=== PATIENT | male | born 1950 | race Caucasian/White ===

== ENCOUNTER 2019-12-15 09:59 | Outpatient (CLI) | payer MEDICARE, SELFPAY ==
--- NOTE | ~2019-12-15 | XR_ITS ---
XR shoulder RT min 2V, XR shoulder LT min 2V 12/15/2019 10:31 (accession [id number]), 12/15/2019 10:32 (accession [id number]) Indication: Shoulder pain. No acute injury. Procedure: 4 views each shoulder Comparison: No prior studies for comparison. Findings: Normal anatomic alignment. No fracture, subluxation or dislocation. There is apical pleural thickening/scarring. Impression: 1: No significant bone or joint abnormality. Reviewed, dictated and finalized at location B. Impression: 1: No significant bone or joint abnormality. Impression: 1: No significant bone or joint abnormality.
== END 2019-12-15 10:00 | disposition home or self-care (01) ==
PROVIDERS: PCP Family Medicine; Visit Provider Family Medicine
DX: M25.511 Pain in right shoulder (principal); M25.512 Pain in left shoulder
CPT/HCPCS: 73030

== ENCOUNTER 2020-04-13 09:43 | Emergency (ER) | payer MEDICARE, SELFPAY ==
[2020-04-13 10:03] VITALS: BP 143/89; PULSE 128; RESP 20; TEMP 36.2; O2SAT 98
--- NOTE | 2020-04-13 10:35 | ED.SKABFB ---
HPI - Skin/Abscess/Foreign Bdy General Chief complaint: Skin/Abscess/Foreign Body Stated complaint: rash all over Time Seen by Provider: 04/13/20 10:26 Source: patient and RN notes reviewed Mode of arrival: ambulatory Limitations: no limitations History of Present Illness HPI narrative: Patient presents today with a pruritic rash to the lower abdomen, bilateral arms and groin x2 weeks. States it continues to worsen since onset. Reports it started in the belt area. Denies drainage. He has tried some hydrocortisone and Aveeno lotion, which provide some mild relief for short-term. He has also been intermittently taking some Benadryl without relief. He denies changes in any household products, foods, medications, plant or animal exposures. MD complaint: rash Related Data Allergies Allergy/AdvReac Type Severity Reaction Status Date / Time bacitracin Allergy Unknown Blister Verified 04/13/20 09:54 [From Neosporin ([id number])] neomycin Allergy Unknown Blister Verified 04/13/20 09:54 [From Neosporin ([id number])] polymyxin B [Polysporin] Allergy Unknown Blister Verified 04/13/20 09:54 Review of Systems Review of Systems: Narrative: CONSTITUTIONAL: Denies body aches, fever, chills, or sweats. EYES: Denies visual changes, redness, or discharge. ENT: Denies rhinorrhea, congestion, sore throat, or otalgia. CARDIOVASCULAR: Denies chest pain, palpitations, or edema. RESPIRATORY: Denies cough or dyspnea. GASTROINTESTINAL: Denies abdominal pain, nausea, vomiting, or diarrhea. GENITOURINARY: Denies dysuria or hematuria. SKIN:+ Pruritic rash. MUSCULOSKELETAL: Denies back pain, joint pain, or myalgia. NEUROLOGIC: Denies headache, numbness, tingling, or weakness. PSYCH: Denies depression or anxiety. [facility] Past Medical History Medical History (Updated 04/13/20 @ 10:40 by Anisha Olmos, [facility], ) COPD (chronic obstructive pulmonary disease) History of lung cancer Osteoarthritis of shoulders, bilateral Rotator cuff tendonitis Surgical History Surgical History (Updated 03/08/20 @ 16:50 by Afua Orona) S/P removal of lung Family History Family History Other Acute myocardial infarction Family history of cardiovascular disease Social History Social History (Updated 03/08/20 @ 16:52 by Afua Orona) Smoking status: Former smoker Smoking end date: 02/26/17 Alcohol intake: current Drinks per week: 12 Comments At time of signature, I have reviewed and agree with nursing past medical, surgical, social and family history unless otherwise noted. Please see nursing chart for further information. There is no relevant family history pertinent to the presenting complaint Exam Narrative: Exam Narrative: GENERAL: Well-appearing, well-nourished, and in no acute distress. HEAD: Normocephalic, atraumatic. EYES: EOMI. No redness or drainage. Conjunctivae normal. ENT: Mucous membranes pink and moist. NECK: Normal AROM. CHEST: No respiratory distress. EXTREMITIES: Normal range of motion. No edema. SKIN: Warm, dry. Capillary refill normal. Normal skin turgor. Erythematous papular rash that has coalesced in the bilateral lower abdomen. This area is very warm to touch with slight induration. Scattered erythematous papular rash to the bilateral lower arms, groin, and legs as well as the back. No vesicles or drainage noted. NEURO: No focal deficits. Alert and oriented x3. Gait steady. PSYCH: Normal affect. No signs of depression or anxiety. Course Vital Signs Vital signs: Vital Signs Temperature 97.1 F L 04/13/20 10:03 Pulse Rate 128 H 04/13/20 10:03 Respiratory Rate 20 04/13/20 10:03 Blood Pressure 143/89 H 04/13/20 10:03 Pulse Oximetry 98 04/13/20 10:03 Temperature 97.1 F L 04/13/20 10:03 Pulse Rate 128 H 04/13/20 10:03 Respiratory Rate 20 04/13/20 10:03 Blood Pressure 143/89 H 04/13/20 10:
== END 2020-04-13 11:00 | disposition home or self-care (01) ==
PROVIDERS: Emergency Provider Nurse Practitioner
DX: L25.9 Unspecified contact dermatitis, unspecified cause (principal); L03.311 Cellulitis of abdominal wall; Z87.891 Personal history of nicotine dependence; J44.9 Chronic obstructive pulmonary disease, unspecified; M19.012 Primary osteoarthritis, left shoulder; M19.011 Primary osteoarthritis, right shoulder; Z85.118 Personal history of other malignant neoplasm of bronchus and lung
CPT/HCPCS: 96372; 99213; G0463; J1100

== ENCOUNTER 2020-05-25 10:03 | Outpatient (CLI) | payer MEDICARE, SELFPAY ==
--- NOTE | 2020-05-25 18:25 | P.PCNPFT_ITS ---
PFT Interpretation This is a pulmonary function test with pre and post-bronchodilator spirometry, plethysmography and diffusing capacity. The test was performed and results interpreted in accordance with the 2019 and 2005 ATS/ERS Task Force guidelines respectively using the Global Lung Function Initiative-2012 reference equations. Patient demonstrated good effort and c ooperation. Reproducibility criteria were met. The quality of the pre bronchodilator spirometry maneuver was Grade A and post bronchodilator spirometry maneuver was Grade A. Findings: Spirometry: there is decreased maximal expiratory airflow at all lung volumes with concave expiratory flow tracing. The contour of the inspiratory flow tracing is normal. The pre bronchodilator F VC is 3.79 L, 120% predicted. The pre bronchodilator FEV1 is 2.23 L, 92% predicted. The FEV1: FVC ratio is 59%. The post bronchodilator FVC is 3.81 L, representing no change. The post bronchodilator FEV1 is 2.28 L, representing a 2% increase. Plethysmography: The total lung capacity is 4.56 L, 83% predicted. The functional residual capacity is 2.22 L, 70% predicted. The residual volume is 0.77 L, 33% predicted. Diffusing capacity: The absolute diffusion capacity is 12.5, 58% predicted. The diffusing capacity corrected for alveolar volume is 3.08, 74% predicted. Impression: There is a mild obstructive abnormality with a normal FEV1 and without significant improvement after inhaling a single dose of albuterol. There is an isolated decrease in the residual volume with a normal total lung ca pacity. This is abnormal but nonspecific lung volume pattern. The absolute diffusing capacity is moderately decreased and normalizes when corrected for alveolar volume. There are no prior studies for comparison
== END 2020-05-25 10:04 | disposition home or self-care (01) ==
PROVIDERS: PCP Family Medicine; Visit Provider Physician Assistant Medical
DX: J44.9 Chronic obstructive pulmonary disease, unspecified (principal)
CPT/HCPCS: 94060; 94726; 94729

== ENCOUNTER 2020-06-09 13:08 | Emergency (ER) | payer MEDICARE, SELFPAY ==
--- NOTE | ~2020-06-09 | XR_ITS ---
EXAMINATION: XR chest 2V EXAM DATE: 06/09/2020 14:01 INDICATION: Cough for one week. History right upper lobectomy, lung cancer. COPD. TECHNIQUE: Frontal and lateral projections of the chest obtained and reviewed. There is no prior kimmie dy for comparison. FINDINGS: Some right-sided volume loss, reportedly patient has had partial pneumonectomy. No conflue nt consolidation, pneumothorax or pleural effusion suspected. Cardiomediastinal silhouette is normal. Mild thoracic scoliosis. IMPRESSION: No acute cardiopulmonary findings. Reviewed, dictated and finalized at location A.
--- NOTE | 2020-06-09 13:31 | ED.URI ---
HPI - URI/Sore Throat General Chief Complaint: Upper Respiratory Infection Stated Complaint: upper respiratory infection Time Seen by Provider: 06/09/20 13:31 Source: patient and RN notes reviewed History of Present Illness HPI Narrative: Patient is a 6-year-old male who presents the urgent care with complaints of cough for the last 4 days. Patient states that he had a bout of chills and some shortness of breath last night. Patient states that he has taken 2 doses of leftover doxycycline and feels great today . Patient currently denies of any shortness of breath or chest pain. Patient states that he is concerned only because he has a history of right lung cancer with a right lobectomy as well as COPD. Patient states that prior to his symptoms he did do some spray painting in an enclosed area. Patient currently denies of any known fevers, nausea, vomiting. No other acute complaints. No acute distress noted. Patient aware of the plan of care. Some parts of this dictation were generated by voice recognition software and may contain typographical and/or grammatical inaccuracies. Related Data Allergies Allergy/AdvReac Type Severity Reaction Status Date / Time bacitracin Allergy Unknown Blister Verified 06/09/20 13:29 [From Neosporin ([id number])] neomycin Allergy Unknown Blister Verified 06/09/20 13:29 [From Neosporin ([id number])] polymyxin B [Polysporin] Allergy Unknown Blister Verified 06/09/20 13:29 Review of Systems Review of Systems: Narrative: CONSTITUTIONAL: Denies fever. 1 bout of chills EYES: Denies visual changes, redness, or discharge. ENT: Denies rhinorrhea, congestion, sore throat, or otalgia. CARDIOVASCULAR: Denies chest pain, palpitations, or edema. RESPIRATORY: Reports a mild nonproductive cough with no current dyspnea GASTROINTESTINAL: Denies abdominal pain, nausea, vomiting, or diarrhea. GENITOURINARY: Denies dysuria or hematuria. SKIN: Denies rash or itching. MUSCULOSKELETAL: Denies back pain, joint pain, or myalgia. NEUROLOGIC: Denies headache, numbness, or weakness. All other systems reviewed are negative, except as documented in HPI. [facility] Past Medical History Medical History COPD (chronic obstructive pulmonary disease) History of lung cancer Osteoarthritis of shoulders, bilateral Rotator cuff tendonitis Surgical History Surgical History S/P removal of lung Family History Family History Other Acute myocardial infarction Family history of cardiovascular disease Social History Social History (Updated 04/19/20 @ 11:44 by Ary Campoverde CMA) Second hand tobacco smoke exposure: No Smoking end date: 02/26/17 Alcohol intake: current Drinks per week: 12 Substance use: never Substance use type: does not use Gender identity (if verbalized by the patient): Male Spiritual care concerns: No Agree to blood products: Yes Comments At the time of my signature, I reviewed and agree with the nursing past medical, surgical, social, and family history. There is no relevant family history pertinent to the patient complaint. Exam Narrative: Exam Narrative: GENERAL: This is a well-nourished, well-developed patient, in no apparent distress. HEAD: normocephalic, atraumatic. EYES: PERRL. Sclera clear/white. Vision is grossly intact. EARS: External ears normal, auditory canals clear and without drainage, TMs normal without perforation. Hearing grossly intact. NOSE: External nose normal with no obvious nasal discharge, nares without redness, no rhinorrhea. THROAT: Mucous membranes moist, posterior pharynx clear. NECK: Neck supple, non-tender without lymphadenopathy, masses or thyromegaly. CARDIOVASCULAR: Regular rate and rhythm without murmurs, gallops, or rubs. RESPIRATORY: Mild right expiratory wheezes, otherwi
[2020-06-09 13:35] VITALS: BP 108/66; PULSE 100; RESP 20; TEMP 36.7; O2SAT 96
== END 2020-06-09 14:10 | disposition home or self-care (01) ==
PROVIDERS: Emergency Provider Nurse Practitioner Family; PCP Family Medicine
DX: R05 Cough (principal); J44.9 Chronic obstructive pulmonary disease, unspecified; M19.012 Primary osteoarthritis, left shoulder; M19.011 Primary osteoarthritis, right shoulder; Z85.118 Personal history of other malignant neoplasm of bronchus and lung
CPT/HCPCS: 71046; 99213; G0463

== ENCOUNTER 2020-07-28 10:24 | Emergency (ER) | payer MEDICARE, SELFPAY ==
--- NOTE | 2020-07-28 10:29 | ED.SKABFB ---
HPI - Skin/Abscess/Foreign Bdy General Chief complaint: Skin/Abscess/Foreign Body Stated complaint: Rash all over body Time Seen by Provider: 07/28/20 10:29 Source: patient and RN notes reviewed History of Present Illness HPI narrative: Patient is a 69-year-old male who presents the urgent care with complaints of a rash all over . Patient states that he went on vacation to [place] approximately 2 weeks ago and noticed the rash on the thighs initially. Patient states that he has been using an old prescription of triamcinolone to the affected areas without much improvement. Patient states that it has now moved to his mid back, around the waist, on the chest. Patient denies of any new prescriptions, creams, lotions or detergents. States that no one else in the home has the rash. States that he was having to cross through the [place] to get to the [place] and believes he may have came in contact with something at that time. No other acute complaints. No acute distress noted. Patient aware of the plan of care. Some parts of this dictation were generated by voice recognition software and may contain typographical and/or grammatical inaccuracies. Related Data Allergies Allergy/AdvReac Type Severity Reaction Status Date / Time bacitracin Allergy Unknown Blister Verified 07/28/20 10:29 [From Neosporin ([id number])] neomycin Allergy Unknown Blister Verified 07/28/20 10:29 [From Neosporin ([id number])] polymyxin B [Polysporin] Allergy Unknown Blister Verified 07/28/20 10:29 Review of Systems Review of Systems: Narrative: CONSTITUTIONAL: Denies fever, chills, or sweats. EYES: Denies visual changes, redness, or discharge. ENT: Denies rhinorrhea, congestion, sore throat, or otalgia. CARDIOVASCULAR: Denies chest pain, palpitations, or edema. RESPIRATORY: Denies cough or dyspnea. GASTROINTESTINAL: Denies abdominal pain, nausea, vomiting, or diarrhea. GENITOURINARY: Denies dysuria or hematuria. SKIN: Reports of itchy rash to bilateral thighs, around the waist, chest and mid back MUSCULOSKELETAL: Denies back pain, joint pain, or myalgia. NEUROLOGIC: Denies headache, numbness, or weakness. All other systems reviewed are negative, except as documented in HPI. [facility] Past Medical History Medical History (Updated 07/28/20 @ 10:46 by SUMI García) Arthritis of right shoulder region COPD (chronic obstructive pulmonary disease) History of lung cancer Osteoarthritis of shoulders, bilateral Rotator cuff tendonitis Surgical History Surgical History S/P removal of lung Family History Family History Other Acute myocardial infarction Family history of cardiovascular disease Social History Social History Second hand tobacco smoke exposure: No Smoking end date: 02/26/17 Alcohol intake: current Drinks per week: 12 Substance use: never Substance use type: does not use Gender identity (if verbalized by the patient): Male Spiritual care concerns: No Agree to blood products: Yes Comments At the time of my signature, I reviewed and agree with the nursing past medical, surgical, social, and family history. There is no relevant family history pertinent to the patient complaint. Exam Narrative: Exam Narrative: GENERAL: This is a well-nourished, well-developed patient, in no apparent distress. HEAD: normocephalic, atraumatic. EYES: PERRL. Sclera clear/white. Vision is grossly intact. EARS: External ears normal NOSE: External nose normal with no obvious nasal discharge, nares without redness, no rhinorrhea. THROAT: Mucous membranes moist NECK: Neck supple CARDIOVASCULAR: Regular rate and rhythm without murmurs, gallops, or rubs. RESPIRATORY: Clear to auscultation. Breath sounds equal bilaterally. No wheezes, rales, or rhonchi. GASTR
[2020-07-28 10:33] VITALS: BP 137/90; PULSE 99; RESP 16; TEMP 36.1; O2SAT 99
== END 2020-07-28 10:50 | disposition home or self-care (01) ==
PROVIDERS: Emergency Provider Nurse Practitioner Family
DX: L23.7 Allergic contact dermatitis due to plants, except food (principal); J44.9 Chronic obstructive pulmonary disease, unspecified; Z85.118 Personal history of other malignant neoplasm of bronchus and lung; M19.012 Primary osteoarthritis, left shoulder; M19.011 Primary osteoarthritis, right shoulder
CPT/HCPCS: 99213; G0463

== ENCOUNTER 2023-06-01 14:37 | Outpatient (CLI) | payer MEDICARE, OTHER, SELFPAY ==
--- NOTE | ~2023-06-01 | US_ITS ---
EXAMINATION: US venous doppler LE RT DATE: 06/01/2023 15:35 INDICATION: Right lower limb pain TECHNIQUE: Grayscale ultrasound images without and with compression and Doppler ultrasound images of the right lower extremity veins were obtained. COMPARISON: None. FINDINGS: The visualized portions of right common femoral vein, profunda (deep) femoral vein, femoral vein, pop liteal vein, peroneal trunk, posterior tibial veins, peroneal veins, gastrocnemius vein and greater s aphenous vein outflow are patent. Noncompressible occlusive thrombus in the right lesser saphenous ve in which is deep to the region of pain. IMPRESSION: 1. 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 No deep venous thr ombosis in the right lower limb. Reviewed, dictated and finalized at location A. IMPRESSION: 1. Noncompressible superficial venous necrosis in the right lesser saphenous ve in. No deep venous thrombosis in the right lower limb.
== END 2023-06-01 14:38 | disposition home or self-care (01) ==
PROVIDERS: PCP Family Medicine; Visit Provider Family Medicine
DX: M79.604 Pain in right leg (principal); Z86.718 Personal history of other venous thrombosis and embolism
CPT/HCPCS: 93971

== ENCOUNTER 2023-12-04 10:28 | Outpatient (CLI) | payer MEDICARE, OTHER, SELFPAY ==
--- NOTE | ~2023-12-04 | XR_ITS ---
HISTORY: fall 3 days ago shoulder pain and bilat anterior rib pain COMPARISON: None TECHNIQUE: 2 views of the right forearm were performed FINDINGS: No acute or subacute fracture, erosion, lytic or sclerotic lesion. Joint spaces are preserved and alignment is normal. Soft tissues are unremarkable without foreign body or significant calcification. Normal mineralization. IMPRESSION: Unremarkable radiographic evaluation of the right forearm, as detailed above. Reviewed, dictated and finalized at location A. IMPRESSION: Unremarkable radiographic evaluation of the right forearm, as dettiffanie lira above.
--- NOTE | ~2023-12-04 | XR_ITS ---
XR shoulder RT min 2V 12/04/2023 10:56 Indication: Right shoulder pain Procedure: 3 views right shoulder Comparison: 12/15/2019 Findings: There is a displaced comminuted right humeral neck fracture with displacement of the greate r tuberosity. Mild osteoarthritis of the acromioclavicular joint. Impression: 1: Acute comminuted, displaced right humeral neck fracture. Reviewed, dictated and finalized at location B. Impression: 1: Acute comminuted, displaced right humeral neck fracture.
--- NOTE | ~2023-12-04 | XR_ITS ---
HISTORY: fall 3 days ago shoulder pain and bilat anterior rib pain COMPARISON: None TECHNIQUE: 3 views of the right elbow were performed. FINDINGS: No acute or subacute fracture, erosion, lytic or sclerotic lesion. Joint spaces are preserved and alignment is unremarkable. No joint effusion is appreciated. Soft tissues are unremarkable without foreign body or significant calcification. Normal mineralization. IMPRESSION: No acute or subacute fracture, as detailed above. Reviewed, dictated and finalized at location A.
--- NOTE | ~2023-12-04 | XR_ITS ---
EXAMINATION: [id number] DATE: 12/04/2023 10:57 INDICATION: Fall. Shoulder pain. Rib pain. TECHNIQUE: A frontal view of the chest and 2 views on 3 radiographs of the right ribs and 2 views on 3 radiographs of the left ribs were obtained. COMPARISON: Chest 2 views 06/09/2020 FINDINGS: There is stable mild scarring at left lung apex. No pleural effusion or pneumothorax. The h eart size is normal. There are prominent pericardial fat pads. There is a comminuted fracture of prox imal right humerus. There are old healed right rib fractures. There are fractures of left sixth and s eventh ribs. IMPRESSION: 1. Fractures of left sixth and seventh ribs. 2. Comminuted fractured of proximal right humerus. Reviewed, dictated and finalized at location A.
--- NOTE | ~2023-12-04 | XR_ITS ---
HISTORY: fall 3 days ago shoulder pain and bilat anterior rib pain COMPARISON: None TECHNIQUE: 2 views of the right wrist were performed FINDINGS: No acute or subacute fracture, erosion, lytic or sclerotic lesion identified. Periarticular osteopenia is noted. Peripheral joint space narrowing as well as radiocarpal joint space narrowing and narrowing of the fi rst carpometacarpal joint space are present. Soft tissues are unremarkable without radiopaque foreign body or significant calcification. IMPRESSION: No acute or subacute fracture within the right wrist, as detailed above. Reviewed, dictated and finalized at location A.
== END 2023-12-04 10:29 | disposition home or self-care (01) ==
LOC: GOSHIMG 10:30
PROVIDERS: PCP Family Medicine; Visit Provider Family Medicine
DX: R07.81 Pleurodynia (principal); S42.291A Other displaced fracture of upper end of right humerus, initial encounter for closed fracture; S22.41XA Multiple fractures of ribs, right side, initial encounter for closed fracture; W19.XXXA Unspecified fall, initial encounter; M25.531 Pain in right wrist; M79.601 Pain in right arm; M25.521 Pain in right elbow
CPT/HCPCS: 71111; 73030; 73080; 73090; 73100

== ENCOUNTER 2023-12-12 12:31 | Outpatient (CLI) | payer MEDICARE, OTHER, SELFPAY ==
--- NOTE | ~2023-12-12 | US_ITS ---
BILATERAL LOWER EXTREMITY VENOUS ULTRASOUND Ordering provider: Mahnaz Woo NP-C History: . R60.0 - Localized edema . Comparison: None. FINDINGS: RIGHT LOWER EXTREMITY VEINS: --COMMON FEMORAL: Patent and free of thrombus. Normal compressibility, phasic flow and augmentation. --PROXIMAL SUPERFICIAL FEMORAL: Patent and free of thrombus. Normal compressibility, phasic flow and augmentation. --DISTAL SUPERFICIAL FEMORAL: Patent and free of thrombus. Normal compressibility, phasic flow and au gmentation. --POPLITEAL: Patent and free of thrombus. Normal compressibility, phasic flow and augmentation. --POSTERIOR TIBIAL: Patent and free of thrombus. Normal compressibility, phasic flow and augmentation . LEFT LOWER EXTREMITY VEINS: --COMMON FEMORAL: Patent and free of thrombus. Normal compressibility, phasic flow and augmentation. --PROXIMAL SUPERFICIAL FEMORAL: Patent and free of thrombus. Normal compressibility, phasic flow and augmentation. --DISTAL SUPERFICIAL FEMORAL: Patent and free of thrombus. Normal compressibility, phasic flow and au gmentation. --POPLITEAL: Patent and free of thrombus. Normal compressibility, phasic flow and augmentation. --POSTERIOR TIBIAL: Patent and free of thrombus. Normal compressibility, phasic flow and augmentation . IMPRESSION: Negative bilateral lower extremity venous US. No deep vein thrombosis. Reviewed, dictated and finalized at location A.
== END 2023-12-12 12:32 | disposition home or self-care (01) ==
PROVIDERS: PCP Nurse Practitioner; Visit Provider Nurse Practitioner
DX: R60.0 Localized edema (principal)
CPT/HCPCS: 93970

== ENCOUNTER 2024-09-20 09:43 | Emergency (ER) | payer MEDICARE, OTHER, SELFPAY ==
--- OUTSIDE RECORDS SUMMARY | 2024-09-20 09:45 | XMS_ITS | Continuity of Care Document ---
Author Organization [facility] Address [address] [place] [address] Phone Care Team Providers Care Power Shear Operator Name Role Phone Jerry BECERRA, Milly Unavailable Unavailable Allergies, Adverse Reactions, Alerts Substance Reaction Status Criticality neomycin Active No Information Medications Medication Instructions Dosage Effective Dates (start - stop) Status Comments latanoprost 0.005 % eye drops instill 1 drop by ophthalmic route every day in both eyes in the evening 1 drop - Active Prilosec OTC 20 mg tablet,delayed release take 1 tablet by oral route every day 1 tablet - Active Procedures Procedure Date SCODI, Retina No Charge Optomap Fundus Photos 025 Visual Field Examination(s) Office/outpatient Visit, Est SCODI, Posterior Segment No Charge Optomap Fundus Photos 024 Visual Field Examination(s) No Charge Refraction Eye Exam & Treatment Corneal Pachymetry SCODI, Posterior Segment No Charge Refraction No Charge Optomap Fundus Photos 022 Visual Field Examination(s) Office/outpatient Visit, Est No Charge Refraction Post-op Follow-up Visit Post-op Follow-up Visit Remove Cataract, Post Op Care 2 Remove Cataract, Insert Lens,Comanaged N IOLMaster-Professional No Charge Refraction Post-op Follow-up Visit Remove Cataract, Post Op Care 2 Remove Cataract, Insert Lens,Comanaged A IOLMaster-Professional IOLMaster-Technical SCODI, Retina No Charge Refraction No Charge Orbscan No Charge Optomap Fundus Photos 022 Office/outpatient Visit, New Advance Directives Directive Yes / No Effective Date File Name No Information Encounters Encounter Description Practice Location Reason(s) For Visit Diagnoses Date Provider Providers Copied on Encounter Office/outpa tient Visit, Est [facility], [facility] [employer] [address], [place], [place], [id number], tel:[phone] SEC Luis Eduardo BERMUDEZ Professional 6 month pressure check (chief complaint) Macular pseudohole of both eyesPresence of intraocular lensOther secondary cataract, bilateralPrim luz open-angle glaucoma, bilateral, mild stage 5 Jerry Atkins. [facility] [employer], [address], [place], [place], [address], [place]. tel:[phone] Justino Jessica MD.Referri Provider: Milly Edwards OD L, [facility] [employer] [address], [place], [address] . tel:[phone] [facility], [address], [place], [place], [id number], tel:[phone] SEC Luis Eduardo BERMUDEZ Professional Complete Exam (chief complaint) Macular pseudohole of both eyesPresence of intraocular lensOther secondary cataract, bilateralPrim luz open-angle glaucoma, bilateral, mild stageVitreous degeneration, right eye 4 Jerry Atkins. [facility] [employer], [address], [place], [place], [address], [place]. tel:[phone] Justino Jessica MD.Referri ng Provider: Justino Jessica MD P, [address] [place] [address], [address] . tel:[phone] Office/outpa tient Visit, Est [facility], [address] [place] [address] [address], [place], [place], [address], [place] tel:[phone] SEC Luis Eduardo BERMUDEZ Professional Glaucoma evaluation (chief complaint) Macular hole, bilateralGlau comatous optic atrophy, bilateralPres ence of intraocular lens Dec-2 2- 2 Eulalio Adler. [address] [facility] [address], [place], [place], [address], [place]. tel:[phone] Justino Jessica MD.Referri ng Provider: Justino Jessica MD P, [address] [place] [address], [address] . tel:[phone] [facility], [address] [place] [address] [address], [place], [place], [address], [place] tel:[phone] SEC Luis Eduardo BERMUDEZ Professional 1 mo CE PO (01/04/22) (chief complaint) Post op visit 2 Jerry OD Milly. [address] [place] [address], [address], [place], [place], [address], [place]. tel:[phone] Justino Jessica MD.Special ist: Austen Quezada OD, [employer] [address] [facility], [place], [address]. tel:[phone] erring Provider: Justino Jessica MD P, [address] [place] [address], [address] . tel:[phone] [facility], [address] [place] [address] [address], [place], [place], [address], [place] tel:[phone] SEC Luis Eduardo BERMUDEZ Professional 1 week s/p PCIOL (chief complaint) Post op visit 2 Jerry OD Milly. [address] [place], [place] [address]st [employer] [facility], [address], [place], [place], [address], [place]. tel:[phone] Justino Jessica MD.Referri ng Provider: Justino Jessica MD P, [address] [place] [address], [address] . tel:[phone] [facility], [address], [place], [place], [address], tel:[phone] SEC Luis Eduardo [place] Professional post op (chief complaint) Post op visit Nov- 0 2 Jerry OD Milly. [address] [place] [address] [employer] [facility], [address], [place], [place], [address], [place]. tel:[phone] Justino Jessica MD.Referri ng Provider: Justino Jessica MD P, [address] [place] [address], [address] . tel:[phone] [facility], [address] [place] [address] [address], [place], [place], [address], [place] tel:[phone] [facility] No Information 2 Eulalio Adler. [address] [facility], [facility] [address], [place], [place], [address], [place]. tel:[phone] Referring Provider: Justino Jessica MD P, [address] [place] [address], [address] . tel:[phone] [facility], [address] [place] [address] [address], [place], [place], [address], [place] tel:[phone] SEC [place] Professional No Information 2 Eulalio Adler. [address] [facility], [facility] [address], [place], [place], [address], [place]. tel:[phone] Referring Provider: Justino Jessica MD P, [address] [place] [address], [address] . tel:[phone] [facility], [address] [place] [address] [address], [place], [place], [address], [place] tel:[phone] SEC [place] Professional 2 week s/p PCIOL OD + 90 day (chief complaint) Post op visitEpiderma l inclusion cyst of left eyelidAge-rel ated nuclear cataract, left eye Sep-2 2 Eulalio Adler. [address] [employer], [address] [place], [address], [place]. tel:[phone] Justino Jessica MD.Referri ng Provider: Justino Jessica MD P, [address] [place] [address], [address] . tel:[phone] [facility], [address], [place], [place], [address], [place] tel:[phone] SEC Luis Eduardo [place] Professional post op (chief complaint) Post op visit Sep-0 2 Jerry OD Milly. [address] [place] [address] [address], [address], [place], [place], [address], [place]. tel:[phone] Justino Jessica MD.Referri ng Provider: Justino Jessica MD P, [address] [place] [address], [address] . tel:[phone] [facility], [address], [place], [place], [address], [place] tel:[phone] [facility] No Information 2 Eulalio Adler. [address] [employer], [address], [place], [place], [address], [place]. tel:[phone] Referring Provider: Justino Jessica MD P, [address] [place] [address], [address] . tel:[phone] [facility], [address], [place], [place], [address], [place] tel:[phone] SEC [place] Professional No Information 2 Eulalio Adler. [address] [employer], [address], [place], [place], [address], . tel:[phone] Referring Provider: Justino Jessica MD P, [address] [place] [address], [address] . tel:[phone] Office/outpa tient Visit, [facility], [address], [place], [place], [address], tel:[phone] SEC Luis Eduardo BERMUDEZ Professional Cataract evaluation (chief complaint) Age-related nuclear cataract, bilateralOcul ar hypertension of right eyeMacular hole, bilateral Sep- 2 Eulalio Adler. [address] [facility], [facility] [address], [place], [place], [address], . tel:[phone] Justino Jessica MD.Referri ng Provider: Justino Jessica MD P, [address] [place] [address], [address] . tel:[phone] [facility], [address], [place], [place], [address], [place] tel:[phone] SEC Renee Amor No Information 2 Eulalio Adler. [address], [facility] [address], [place], [place], [address], . tel:[phone] Specialist : Justino Jessica MD, [address] [place] [address], [address] . tel:[phone] Family History Family Member Type Diagnosis Age At Onset Mother Problem (finding) Thyroid Disease Problem Family history of Diabetes m gustavo Mother Problem (finding) Stroke Mother Problem (finding) Diabetes Type II Problem Family history of Macular de generation Payers Payer name Insurance type Covered libertarian ID Authoriza tion(s) [place] [id number] [facility] [id number] Social History Type Description Quantity Date Captured Comments Alcohol Use Details Caffeine Use Details Tobacco Use Status Ex-cigarette smoker 025 Smoking Status Former smoker Smoking Tobacco Use Details Cigarette: Age Started: 11, Age Stopped: 66, Years Used 54 Cigarette: 1 Packs per day, Pack Year: 55 Sex Male Chief Complaint And Reason For Visit From encounter dated '07/31/2024 13:00'. 6 month pressure check (chief complaint). Description: The 73 year old patient presents for evaluation of 6 month pressure check in the right eye and left eye. H/o POAG OU and PCIOL OU. Pt reports the left eye as getting more cloudy, started a few weeks ago. Latanoprost qhs OU, gets drops in most days. Pt had shoulder surgery and it's difficult to get drops in. Denies pain/pressure. Denies flashes/floaters. Reason For Referral Reason For Referral No Information Plan Of Treatment Date Type Action Status Goal Tobacco cessation counseling completed Goal Tobacco cessation counseling completed Goal Tobacco cessation counseling completed Goal Tobacco cessation counseling completed Goal Tobacco cessation counseling completed Goal Tobacco cessation counseling completed Appointment Herbert Rose BOOKED Appointment Herbert Rose BOOKED Patient Education Learning About YAG Lase r Capsulotomy completed Patient Education Learning About YAG Lase r Capsulotomy completed Patient Education Cataract Surgery: Befor e Your Surgery completed History Of Present Illness Encounter Date Complaint History Of Prese nt Illness 6 month pressure check The 73 ye ar old patient presents for evaluation of 6 month pressure check in the right eye and left eye. H/o POAG OU and PCIOL OU. Pt reports the left eye as getting more cloudy, started a few weeks ago. Latanoprost qhs OU, gets drops in most days. Pt had shoulder surgery and it's difficult to get drops in. Denies pain/pressure. Denies flashes/floaters. Complete Exam The 73 year old patient presents for evaluation of Complete Exam in the right eye and left eye. Pt hx of OHTN, PCIOL OU. Pt states after Mac Hole repair OU(2021 OD and 2022 OS) with Dr Jessica he was put on Latanoprost qHS OU and has been using it ever since but has not followed up with any [facility] doctor since Dr Jessica retired. Pt states he feels vision is doing ok, but maybe a bit of decrease. Pt states driving at night is becoming more of a challenge x1-2 months. Glaucoma evaluation The 71 year old patient presents for a glaucoma evaluation ou. Patient recently had CE ou. Patient doesn't use any drops. Patient states ou is doing ok. 1 mo CE PO (01/04/22) The 71 year old patient presents for evaluation of 1 mo CE PO (01/04/22) in the left eye. Pt reports has finished his CE PO gtts and is currently using Latanoprost QHS OU. Pt reports OS is doing good and he is seeing better than he has in 30 yrs. 1 week s/p PCIOL The 71 year old patient presents for evaluation of 1 week s/p PCIOL in the left eye. Patient states VA seems good. Patient using p/o gtts as directed. post op The 71 year old patient presents for a 1 day post op CE OS. Patient is using Pred, Vigamox and Ketorolac qid OS. Patient denies any pain or discomfort. Patient states vision OS seems pretty good. 2 week s/p PCIOL OD + 90 day The 71 year old patient presents for evaluation of 2 week s/p PCIOL OD + 90 day in the left eye. Patient states VA is great at a distance with the right eye. Patient using p/o gtts as directed. c/o with the left eye is trouble driving at night due to glare. Patient has difficulty seeing in bright sunlight with the left eye. Patient states he has difficulty seeing road signs at a distance with the left eye and notices the difference between both eyes trying to work together. PATIENT IS NOT USING GLAUCOM GTTS.. (Rosalina qd OU and Brim BID OS is what JMN visit noted to use. post op The 71 year old patient presents for a 1 day post op CE OD. Patient is using Pred, Vigamox and Ketorolac qid OD. Patient denies any pain or discomfort. Patient states his vision OD seems pretty good. Cataract evaluation The 70 year old patient presents for evaluation of Cataract evaluation in the right eye and left eye. Pt. was referred by Dr. Jessica for Cataract evaluation. Pt. has noticed the past 6-8 months decrease in vision at distance. Pt. is having trouble seeing the tv menu even with glasses on. Pt. also struggling to see to drive at night due to glare from headlights. Pt. had Mac. hole OD s/p surgery, and then had Mac. surgery OS 2 weeks ago. Pt. is currently using Latanoprost OU qhs, and Tobradex OS qid. Pt. states his air bubble resolved as of yesterday. Functional Status Date Functional Assessmen t No Information Instructions Date Instruction Additional Infor saray Impression/Plan Impression/Plan Impression/Plan Impression/Plan Impression/Plan Impression/Plan Impression/Plan Impression/Plan Impression/Plan Assessments Type Assessment Date assessment Macular pseudohole of both eyes assessment Presence of intraocular lens Jul assessment Other secondary cataract, bilate ral assessment Primary open-angle glaucoma, danilo ateral, mild stage Patient Care Teams Name Effective Dates (start - stop) Status Members No Information
--- OUTSIDE RECORDS SUMMARY | 2024-09-20 09:45 | XMS_ITS | Encounter Summary ---
Author Organization [facility] Healthcare Address [address] [place] [address] Care Team Providers Care Recreation Superintendent Name Role Phone Geovani Hernandez MD Unavailable [phone] Chase Dowell MD Unavailable Daniel Pérez MD Unavailable Megan Shelley DO Primary Care Provider [phone] Reason for Visit * Reason Comments PT Treatment * Consultation (Routine) - Authorized Specialty Diagnoses / Procedures Referred By Danny t Referred To Contact Physical Therapy Diagnoses Right shoulder pain, unspecified chronicity Failed total joint replacement, subsequent encounter Infection of prosthetic joint, subsequent encounter Bill Reyna MD [address] [facility] [place] [address] Phone: tel: fax: [address] [address] Referral ID Status Reason Start Date Expiration Date Visits Requested Visits Authorized [id number] Authorized Specialty Services Required 05/19/2024 06/18/2025 [age] Encounter Details Date Type Department Care Team (Late st Contact Info) Description 09/19/2024 8:30 AM CDT Therapy [facility] [place] [address] Allyssa Omer, PT Right shoulder pain, unspecified chronicity (Primary Dx) Social History Tobacco Use Types Packs/Day Years Used Date Smoking Tobacco: Former Cigarettes 0.5 55 1 962 - 2017 Passive Smoke Exposure: Past Smokeless Tobacco: Never AUDIT-C Answer Date Recorded Q1: How often do you have a drink containing alc ohol? 2-3 times a week 04/30/2024 Q2: How many drinks containi ng alcohol do you have on a typical day when you are drinking? 1 or 2 04/30/2024 Q3: How often do you have si x or more drinks on one occasion? Never 04/30/2024 Personal Safety Answer Date Recorded Have you ever been in or are you currently in a harmful physical or emotional relationship or is someone making you feel afraid or unsafe? 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 Right shoulder pain, unspecified chronicity Subjective: Herbert has no changes or complaints today. He feels that he is able to do most activities. He has relatively no pain most of the time. Objective: DOS: 05/14/2024 (128 days s/p) Right Revision Reverse Total Shoulder Arthroplasty - Right Shoulder Removal Of Antibiotic Spacer ROM: PROM AROM R L R Shoulder Flexion 148 135 110 Shoulder Abduction 145 160 90 Shoulder ER at 45 50 - - Shoulder IR at 0 - - - Shoulder ER at 90 50 90 - Shoulder IR at 90 80 45 - Manual Muscle Testing: Left Right Shoulder flexion 5/5 5-/5 Shoulder abduction 5-/5 4+/5 Shoulder ER 5-/5 3-/5 Shoulder IR 5-/5 2/5 Treatment Provided: PROM flexion, abduction, ER Supine cane press 5 lb bar Supine shoulder flexion 5 lb bar Supine cane ER 5 lb bar Supine active punch/reach x20 3# Supine arm circles x 10ea CW/CCW 3# Supine R shoulder flexion x 15 3# S/L shoulder abduction x 15 3# S/L shoulder ER x8 2#, x8 3# - self tactile cue requires to avoid arm abduction Pulleys flexion and abduction x2'ea Rows blueTB - requires verbal and tactile cues the first few reps to perform with appropriate muscle recruitment IR at neutral green TB ER at 0 step out greenTB (trying to keep arm at neutral as walking out and avoiding going into IR) Wall slides flexion Wall slides side to side Finger ladder x 5 Active flexion x10 4# Active scaption x10 4# Bicep curls x 20 5# Gentle stretch behind back with green strap Weighted Red ball @ wall CW/CWW x10 each UBE 6 minutes forward/backward L3 HEP Includes: Access Code: [email or web address] URL: [email or web address] Date: 06/05/2024 Prepared by: Kimberly Washington Exercises - Seated Scapular Retraction - 2 x daily - 7 x weekly - 1 sets - 20 reps - Supine Shoulder Flexion Extension AAROM with Dowel - 2 x daily - 7 x weekly - 1 sets - 20 reps - Supine Shoulder Press with Dowel - 1 x daily - 7 x weekly - 2 sets - 10 reps - Standing Shoulder Abduction ROM with Dowel - 1 x daily - 7 x weekly - 2 sets - 10 reps - Seated Shoulder Flexion AAROM with Giana Behind - 1 x daily - 7 x weekly - 1- 2 sets - 20 reps Added 5/2: - Supine Shoulder Flexion Extension Full Range AROM - 1-2 x daily - 7 x weekly - 10-20 reps - Sidelying Shoulder Abduction Palm Forward - 1-2 x daily - 7 x weekly - 10-20 reps - Sidelying Shoulder External Rotation - 1-2 x daily - 7 x weekly - 10-20 reps Assessment: Herbert has completed 29 visits of PT intervention s/p R RTSA with antibiotic spacer and revision. He is progressing well at this time. He has achieved expected AROM and has likely achievedfull strength at this point. Intervention over the last several weeks has focused on strenghtening primarily. He has maximal therapy progress at this point. He has minimal pain and is functional. Goals: STG 1:: Pt to be IND with HEP excellent progress LTG 1:: Pt to improve active elevation to >130 degrees goal met LTG 2:: Pt to improve strength at leat 4+/5 some progress LTG 3:: Pt to report max pain <2/10 with daily activities excellent progress Plan: D/C PT at this time. Start Time: 827 End Time: 909 Allyssa Omer, PT, DPT PROTOCOL: Lifting restriction of 5 pounds until 12 weeks from surgery Advance AROM and PROM as tolerated Advance elevation as tolerated Initiate IR behind the back Scapular stabilizer strengthening Advance shoulder ER range of motion as tolerated (Light stretching only). May initiate subscapularis strengthening (resisted IR and extension) and rotator cuff strengtheningat 12 weeks from surgery Incorporate low level functional activities at 3 months from surgery (swimming, water aerobics, light tennis, jogging). No weight restrictions after 3 months from surgery Start higher level activities at 4 months from surgery (tennis, light weight training, and golf). Initiate functional progression to sports specific activities at 4 months from surgery. documented in this encounter Plan of Treatment Not on file documented as of this encounter Visit Diagnoses Diagnosis Right shoulder pain, unspecified chronicity- Primary documented in this encounter Care Teams Recreation Superintendent Relationship Specialty Start Date End Date Megan Shelley DO [facility] [address] [address] PCP - General Family Medicine 12/05/23 Geovani Hernandez MD Surgeon Cardiothoracic Surgery 08/13/17 Chase Dowell MD Consulting Physician Medical Oncology 08/13/17 Daniel Pérez MD [address] [facility] [address] [place] [address] Consulting Physician Radiation Oncology 08/14/17 documented as of this encounter
--- OUTSIDE RECORDS SUMMARY | 2024-09-20 09:45 | XMS_ITS | Clinical Summary ---
Author Organization [facility] Address [address] [place] [address] Care Team Providers Care Theatre Manager Name Role Phone Gregory Stevens MD Primary Care Provider [phone] Source Comments [facility],non-owned Affiliates and Associated Physician Practices is amultiple site organization consisting of ambulatory clinics and hospital sitesin [place], [place], [place] and [place]. This disclosure is being madepursuant to the Care Everywhere program and may not contain all information available regarding this patient. 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 Gender Identity Not on file Sexual Orientation Not on file Plan of Treatment Health Maintenance Due Date Last Done Comments COLOGUARD (AGES 45-75) - COL ON CA SCREENING 1950 COLON MONITORING 1950 COLONOSCOPY - COLON CA SCREENING 1949 CT COLONOGRAPHY - COLON CA SCREENING 1950 Colorectal Cancer Screening 1950 FIT - COLON CA SCREENING 1950 FLEX SIG - COLON CA SCREENING 1950 LIPID TESTING 1950 MEDICARE AWV 12 MONTHS 1950 HEPATITIS C SCREENING 09/24/1967 DTAP/TDAP/TD VACCINES (1 - Tdap) 1968 PNEUMOCOCCAL VACCINE 50+ (1 of 1 - PCV) 09/29/1999 ZOSTER VACCINE (1 of 2) 09/29/1999 COVID-19 VACCINE ( - 2023-2 5 season) 2023 DEPRESSION SCREENING 02/27/2024 Respiratory Syncytial Virus (RSV) Vaccine Pt: or over 60 yrs (1 - 1-dose 75+ series) 2024 INFLUENZA VACCINE (#1) 2024 HEPATITIS B VACCINE Aged Out No longe r eligible based on patient's age to complete this topic HIB VACCINE Aged Out No longer eligi ble based on patient's age to complete this topic HPV VACCINE Aged Out No longer eligi ble based on patient's age to complete this topic MENINGOCOCCAL (Group B) VACC INE SHARED DECISION-MAKING Aged Out No longer eligibl e based on patient's age to complete this topic MENINGOCOCCAL GROUPS A/C/Y/W VACCINE Aged Out No longer eligible b ased on patient's age to complete this topic Insurance MEDICARE Care Teams Theatre Manager Relationship Specialty Start Date End Date Gregory Stevens MD [address] [place] [id number] PCP - General 12/21/08
--- OUTSIDE RECORDS SUMMARY | 2024-09-20 09:45 | XMS_ITS | Encounter Summary ---
Author Organization [facility] Address [address] [place] [address] Phone Care Team Providers Care Physical Fitness Teacher Name Role Phone Gregory Stevens MD Primary Care Provider [phone] Geovani Hernandez MD Unavailable [phone] Chase Dowell MD Unavailable [phone] Daniel Pérez MD Unavailable [phone] Megan Shelley DO Primary Care Provider [phone] Encounter Details Date Type Department Care Team (Latest Contact Info) Description 01/04/2017 Orders Only [facility] CONVERSION Scanning, Provider Social History Tobacco Use Types Packs/Day Years Used Date Smoking Tobacco: Never Assessed Sex and Gender Information Value Date Recorded Sex Assigned at Not on file Legal Sex 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 Gender Identity Not on file Sexual Orientation Not on file documented as of this encounter Plan of Treatment Not on file documented as of this encounter Procedures Procedure Name Priority Date/Time Associated Diagnosis Comments VASCULAR LABORATORY REPORT 01/04/2017 10:15 PM ENTERPRISE ACCOUNT MANAGER documented in this encounter Results * VASCULAR LABORATORY REPORT (01/04/2017 10:15 PM ENTERPRISE ACCOUNT MANAGER) Anatomical Region Laterality Modality Ultrasound us Provider Scanning CV VASCULAR PROCEDURES Final R esult documented in this encounter Visit Diagnoses Not on filedocumented in this encounter Additional Health Concerns Infection Onset Date Last Indicated Resolved Time COVID: Suspected 02/20/2024 02/20/2024 02/20/2024 5:21 PM ENTERPRISE ACCOUNT MANAGER documented as of this encounter Care Teams Physical Fitness Teacher Relationship Specialty Start Date End Date Gregory Stevens MD [address] [place] [address] PCP - General 04/14/16 12/04/23 Megan Shelley DO [address] [place] [address] [address]ACQUES [address] [place] [address] [id number] PCP - General Family Medicine 12/05/23 Geovani Hernandez MD [address] [place] [address] Surgeon Cardiothoracic Surgery 08/13/17 Chase Dowell MD [address] [place] [address] Consulting Physician Medical Oncology 08/13/17 Daniel Pérez MD [address] [place] [id number] # LL [id number] [place] [address] Consulting Physician Radiation Oncology 08/14/17 documented as of this encounter
--- OUTSIDE RECORDS SUMMARY | 2024-09-20 09:45 | XMS_ITS | Clinical Summary ---
Author Organization [facility] Address [address] [address] Care Team Providers Care Monitoring Manager Name Role Phone Geovani Hernandez MD Unavailable [phone] Chase Dowell MD Unavailable Daniel Pérez MD Unavailable Megan Shelley DO Primary Care Provider [phone] Allergies Active Allergy Reactions Criticality Noted Date Comments Amoxicillin-Pot Clavulanate Rash Medium 05/03/19 25 Drug rash with eosinophilia Bacitracin Rash Medium 04/23/2024 Contact dermatitis Cefepime Rash Medium 02/14/2024 Chlorhexidine Rash Medium 04/06/2024 Delayed hypersensitivity. Recommend alternative skin prep. Clindamycin Itching Low 03/14/2024 Ethyl Zdlgdhly-Vn-Ahscmi Methacrylate Rash Medium 04/23/2024 Contact dermatitis. Recommend paper tape for bandages. Hydrocortisone-Emollient No.45 Rash Medium 04/23/2024 ACD Latex Rash Medium 01/23/2024 Negative IgE testing for latex. Patient cannot recall initial allergy event or reaction. Never issues with condoms, latex dental dams. Neomycin Rash Medium Neosporin (Neomycin-Polymyx) Rash Medium 02/01/2016 Thimerosal Rash Medium 04/23/2024 Contact dermatitis Vancomycin Rash Medium 02/14/2024 Medications latanoprost (XALATAN) 0.005 % ophthalmic solution Administer 1 drop into both eyes nightly 4 Active traZODone (DESYREL) 50 mg tabletIndicatio ns:sleep Take 1 tablet (50 mg total) by mouth nightly as needed for sleep 5 Active cetirizine (ZyrTEC) 5 mg chewable tabletIndicatio ns:Seasonal Allergic Rhinitis Take 1 tablet (5 mg total) by mouth every morning Active omeprazole (PriLOSEC) 20 mg capsule Take 1 capsule (20 mg total) by mouth daily Active oxyCODONE (ROXICODONE) 5 mg immediate release tabletIndicatio ns:Pain Take 1 tablet (5 mg total) by mouth every 4 (four) hours as needed for pain 30 tablet 5 Active triamcinolone (KENALOG) 0.025 % ointment Apply topically 2 (two) times a day DO NOT APPLY TO RIGHT SHOULDER SURGICAL INCISION. 5 Active acetaminophen (TYLENOL) 500 mg tablet Take 2 tablets (1,000 mg total) by mouth every 6 (six) hours 60 tablet 1 5 Active aspirin 81 mg enteric coated tablet Take 1 tablet (81 mg total) by mouth 2 (two) times a day 28 tablet 5 Active celecoxib (CeleBREX) 100 mg capsule Take 1 capsule (100 mg total) by mouth 2 (two) times a day 28 capsule 5 Active docusate sodium (COLACE) 100 mg capsuleIndicati ons:constipatio n Take 1 capsule (100 mg total) by mouth 2 (two) times a day 30 capsule 1 5 Active Active Problems Problem Noted Date Diagnosed Date Arthritis of right shoulder region 05/14/2024 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 03/28/2024 Prosthetic joint infection, sequela 02/14/2024 Prosthetic shoulder infection, 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 02/05/2024 Prosthetic shoulder infection, subsequent encoun ter 01/22/2024 S/P reverse total shoulder arthroplasty, right 1 03/23/2023 Infection of prosthetic shoulder joint, sequela 01/22/2024 Right shoulder pain 12/19/2023 Closed fracture of right proximal humerus 2023 Basal cell carcinoma (BCC) o f skin of left eyelid including canthus 02/07/2022 Multiple pulmonary nodules d etermined by computed tomography of lung 02/07/2022 Renal cyst, right 08/12/2019 Encounter for smoking cessation counseling 08/11 Primary adenocarcinoma of upper lobe of right gali ng 08/08/2017 Cancer Staging:Clinical stage from 03/03/2016:Stage IIIA(cT1c, cN2, cM0) - Signed by Chase Dowell MD on 08/14/2017 Pathologic stage from 07/27/2016: ypT0, pN0, cM0 - Signed by Chase Dowell MD on 08/14/2017 Overview (02/12/2018): He had a right upper lobe resection and mediastinoscopy on July 27, 2016. This was a post induction lobectomy for T1 N2 stage IIIA lung cancer. As you recall, he had a complete pathologic response. 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 03/28/2016 Encounters Date Type Department Care Team Description 09/19/2024 8:30 AM CDT Therapy [facility] [place] [address] Allyssa Omer, PT Right shoulder pain, unspecified chronicity (Primary Dx) 09/17/2024 8:30 AM CDT Therapy [facility] [place] [address] Allyssa Omer, PT Right shoulder pain, unspecified chronicity (Primary Dx) 09/11/2024 1:00 PM CDT Therapy [facility] [place] [address] [address] Allyssa Omer, PT Right shoulder pain, unspecified chronicity (Primary Dx) 09/09/2024 8:30 AM CDT Therapy [facility] [place] [address] [address] Allyssa Omer, PT Right shoulder pain, unspecified chronicity (Primary Dx) 09/05/2024 8:30 AM CDT Therapy [facility] [place] [address] Kimberly Washington, PT Right shoulder pain, unspecified chronicity (Primary Dx); Infection of prosthetic joint, subsequent encounter; Failed total joint replacement, subsequent encounter; History of total shoulder replacement, right 09/01/2024 Results Follow-Up [facility] [address] [place] [address] Lety Dominguez MD CBC with auto differential 08/28/2024 8:30 AM CDT Therapy [facility] [place] [address] Kimberly Washington, PT Right shoulder pain, unspecified chronicity (Primary Dx); Infection of prosthetic joint, subsequent encounter; Failed total joint replacement, subsequent encounter 08/26/2024 1:00 PM CDT Therapy [facility] [place] [address] Allyssa Omer, PT Right shoulder pain, unspecified chronicity (Primary Dx) 08/22/2024 1:45 PM CDT Therapy [facility] [place] [address] Allyssa Omer, PT Right shoulder pain, unspecified chronicity (Primary Dx) 08/20/2024 9:15 AM CDT Therapy [facility] [place] [address] Allyssa Omer, PT Right shoulder pain, unspecified chronicity (Primary Dx) 08/14/2024 1:00 PM CDT Therapy [facility] [place] [address] Allyssa Omer, PT Right shoulder pain, unspecified chronicity (Primary Dx) 08/08/2024 8:30 AM CDT Therapy [facility] [place] [address] Kimberly Washington, PT Right shoulder pain, unspecified chronicity (Primary Dx); Infection of prosthetic joint, subsequent encounter; Failed total joint replacement, subsequent encounter 08/07/2024 10:48 AM CDT - 08/07/2024 11:59 PM CDT Hospital Encounter [facility] Radiology at [facility] [address] [place] [address] S/P orthopedic surgery, follow-up exam Discharge Disposition: Discharge to home or self care 08/07/2024 10:30 AM CDT Office Visit [facility] [address] [place] [address] Bill Reyna MD Right shoulder pain, unspecified chronicity (Primary Dx); S/P orthopedic surgery, follow-up exam; Failed total joint replacement, subsequent encounter; Infection of prosthetic joint, subsequent encounter 08/06/2024 8:30 AM CDT Therapy [facility] [place] [address] Kimberly Washington, PT Right shoulder pain, unspecified chronicity (Primary Dx); Infection of prosthetic joint, subsequent encounter; Failed total joint replacement, subsequent encounter 08/06/2024 Plan of Care Documentation [facility] [place] [address] 07/30/2024 8:30 AM CDT Therapy [facility] [place] [address] Kimberly Washington, PT Right shoulder pain, unspecified chronicity (Primary Dx); Infection of prosthetic joint, subsequent encounter; Failed total joint replacement, subsequent encounter 07/28/2024 2:45 PM CDT Therapy [facility] [place] [address] Allyssa Omer, PT Right shoulder pain, unspecified chronicity (Primary Dx) 07/25/2024 8:45 AM CDT Therapy [facility] [place] [address] [address] Allyssa Omer, PT Right shoulder pain, unspecified chronicity (Primary Dx) 07/23/2024 8:15 AM CDT Therapy [facility] [place] [address] Allyssa Omer, PT Right shoulder pain, unspecified chronicity (Primary Dx) 07/16/2024 7:45 AM CDT Therapy [facility] [place] [address] Kimberly Washington, PT Right shoulder pain, unspecified chronicity (Primary Dx); Infection of prosthetic joint, subsequent encounter; Failed total joint replacement, subsequent encounter; History of total shoulder replacement, right; Closed fracture of proximal end of right humerus with routine healing, unspecified fracture morphology, subsequent encounter 07/14/2024 2:00 PM T Therapy [facility] [place] [address] Kimberly Washington, PT Right shoulder pain, unspecified chronicity (Primary Dx); Infection of prosthetic joint, subsequent encounter; Failed total joint replacement, subsequent encounter; History of total shoulder replacement, right; Closed fracture of proximal end of right humerus with routine healing, unspecified fracture morphology, subsequent encounter 07/11/2024 11:30 AM T Therapy [facility] [place] [address] Kimberly Washington, PT Right shoulder pain, unspecified chronicity (Primary Dx); Infection of prosthetic joint, subsequent encounter; Failed total joint replacement, subsequent encounter 07/09/2024 1:00 PM CDT Therapy [facility] [place] [address] Kimberly Washington, PT Right shoulder pain, unspecified chronicity (Primary Dx); Infection of prosthetic joint, subsequent encounter; Failed total joint replacement, subsequent encounter; History of total shoulder replacement, right 07/03/2024 4:15 PM CDT Therapy [facility] [place] [address] Allyssa Omer, PT Right shoulder pain, unspecified chronicity (Primary Dx) 07/01/2024 1:30 PM CDT Therapy [facility] [place] [address] Allyssa Omer, PT Right shoulder pain, unspecified chronicity (Primary Dx) 06/27/2024 9:15 AM CDT Therapy [facility] [place] [address] Allyssa Omer, PT Right shoulder pain, unspecified chronicity (Primary Dx); Infection of prosthetic joint, subsequent encounter; Failed total joint replacement, subsequent encounter 06/26/2024 10:10 AM CDT Office Visit [facility] [address] [place] [address] Bill Reyna MD Right shoulder pain, unspecified chronicity (Primary Dx); S/P orthopedic surgery, follow-up exam; Infection of prosthetic joint, subsequent encounter; Failed total joint replacement, subsequent encounter 06/26/2024 10:04 AM CDT - 06/26/2024 11:59 PM CDT Hospital Encounter [facility] Radiology at [facility] [address] [place] [address] S/P orthopedic surgery, follow-up exam Discharge Disposition: Discharge to home or self care 06/25/2024 9:15 AM CDT Therapy [facility] [place] [address] Kimberly Washington, PT Failed total joint replacement, subsequent encounter (Primary Dx); Infection of prosthetic joint, subsequent encounter; History of total shoulder replacement, right from Last 3 Months Immunizations Immunization Administration Dates Next Due Influenza, Quadrivalent, Rec ombinant, Egg Free, Preservative Free, Intramuscular 12/12/2018 Influenza, Quadrivalent, Split, Intramuscular Influenza, Quadrivalent, Spl it, Preservative Free, Intramuscular 11/23/2017 Influenza, Trivalent, IM (MDV) 11/19/2013 Influenza, Unspecified 02/27/2024 Pneumococcal Conjugate PCV 13 11/23/2017, 015 Pneumococcal Polysaccharide PPV23 12/12/2018 Surgical History Surgery Date Site/Laterality Comments THORACOTOMY BRONCHOSCOPY MEDIASTINOSCOPY LUNG LOBECTOMY 07/27/2016 Right SHOULDER ARTHROPLASTY Right SHOULDER HARDWARE REMOVAL 01/27/2024 - 02/26/2024 Right shoulder prosthetic joint explant Medical History Medical History Date Comments Anxiety disorder Anxiety - (Adde d by TW Conv) History of chemotherapy Family History Medical History Relation Name Comments COPD Father Family history of chronic obstructive pulmonary disease - (Added by TW Conv) Stroke Mother Family history of stroke - (Added by TW Conv)/Family history of stroke - (Added by TW Conv) Coronary artery disease Mother's Brother Family history of CABG - (Added by TW Conv) Valvular heart disease Sister Famil y history of valvular heart disease - (Added by TW Conv) Anesthesia problems Neg Hx Relation Name Status Comments Father Mother Mother's Brother Sister Social History Tobacco Use Types Packs/Day Years Used Date Smoking Tobacco: Former Cigarettes 0.5 55 1 962 - 2016 Passive Smoke Exposure: Past Smokeless Tobacco: Never Tobacco Cessation:Counseling Given: Not Answered AUDIT-C Answer Date Recorded Q1: How often [...] on file Legal Sex Male 4:18 AM [employer] Gender Identity Not on file Sexual Orientation Not on file Obstetrics History Last Filed Vital Signs Vital Sign Reading Time Taken Comments Blood Pressure 121/73 06/03/2024 10:54 AM CDT Pulse 86 06/03/2024 10:54 AM CDT Temperature 36.4 C (97.6 F) 06/03/2024 10:54 AM CDT Respiratory Rate 18 06/03/2024 10:54 AM CDT Oxygen Saturation 99% 06/03/2024 10:54 AM CDT Inhaled Oxygen Concentration - - Weight 77.8 kg (171 lb 9.6 oz) 06/03/2024 10:54 AM CDT Height 170.2 cm (5' 7) 05/14/2024 10:51 AM CDT Body Mass Index 26.88 05/14/2024 10:51 AM CDT Plan of Treatment Health Maintenance Due Date Last Done Comments Colon Cancer Screening-Colonoscopy 1950 Depression Screening 1950 Hepatitis C Screening 1950 DTaP/Tdap/Td Vaccine (1 - Tdap) 1960 Hepatitis B Screening 09/29/1967 Zoster Vaccine (1 of 2) 1968 Well Visit 65+ 2014 Influenza Vaccine (#1) 2024 , 12/12/2018, 11/23/2017, Additional history exists Fall Risk Assessment 05/15/2025 05/15/2024 Pneumococcal vaccine 65+ Completed 019, 11/23/2017, 01/16/2015 Abdominal Aortic Aneurysm (A AA) Screen Completed 06/03/2024, 02/06/2023, 02/07/2022, Additional history exists Medical Devices Implanted Type Area Bullet Swaging Machine Adjuster Device Identifier Shelf Expiration Date Model / Serial / Lot Cement Molds Implanted:Qty: 1 on 02/13/2024 at [facility] Other - see comments Right: Shoulder [place] INST FEE 0 / / Ptc Proximal Body Implanted:Qty: 1 on 05/14/2024 at [facility] Other - see comments Right: Shoulder Gina 08/30/2028 [id number] / [id number] / Tornier Perform Humeral System Implanted:Qty: 1 on 05/14/2024 at [facility] Other - see comments Right: Shoulder Gina 11/11/2028 [id number] / [id number] / Tornier Hrs Ptc Partially Coated Distal Stem Implanted:Qty: 1 on 05/14/2024 at [facility] Other - see comments Right: Shoulder [place] 08/05/2028 [id number] / [id number] / [employer] [place] R High Viscosity Cement 40gm Bone Green [id number] - [id number] Implanted:Qty: 1 on 02/13/2024 at [facility] Right: Shoulder [employer] 01/26/2028 [id number] / / [id number] [employer] [place] R High Viscosity Cement 40gm Bone Green [id number] - [id number] Implanted:Qty: 1 on 02/13/2024 at [facility] Right: Shoulder [employer] 01/26/2028 [id number] / / [id number] [employer] [place] R High Viscosity Cement 40gm Bone Green [id number] - [id number] Implanted:Qty: 1 on 02/13/2024 at [facility] Right: Shoulder [employer] 01/26/2028 [id number] / / [id number] [employer] Post Press Fit Glenoid Threaded Long Aequalis Perform 15mm [id number] - [id number] Implanted:Qty: 1 on 05/14/2024 at [facility] Right: Shoulder [employer] 05/04/2028 [id number] / [id number] / [employer] Baseplate Glenoid Reverse Aequalis Perform 25mm [id number] - [id number] Implanted:Qty: 1 on 05/14/2024 at [facility] Right: Shoulder [employer] 03/12/2029 [id number] / [id number] / [employer] Aequalis Perform Reversed 5mm 18mm Peripheral Glenoid Screw [id number] - [id number] Implanted:Qty: 2 on 05/14/2024 at [facility] Right: Shoulder [employer] [id number] / / [employer] Glenosphere Cannulated Standard Ti 39mm [id number] - [id number] Implanted:Qty: 1 on 05/14/2024 at [facility] Right: Shoulder [employer] 12/25/2027 [id number] / [id number] / [employer] Aequalis Perform Reversed 5mm 34mm Peripheral Glenoid Screw [id number] - [id number] Implanted:Qty: 2 on 05/14/2024 at [facility] Right: Shoulder [employer] [id number] / / [employer] Screw Baseplate Aequalis Flex Revive L0mm Shoulder [id number] - [id number] Implanted:Qty: 1 on 05/14/2024 at [facility] Right: Shoulder [employer] 09/11/2028 [id number] / [id number] / [employer] Aequalis Flex Revive Shoulder Cap Locking [id number] - [id number] Implanted:Qty: 1 on 05/14/2024 at [facility] Right: Shoulder [employer] 04/11/2028 [id number] / [id number] / [employer] Implant Shoulder Size 3 8mm Offset Tornier Hrs Sterile [id number] - [id number] Implanted:Qty: 1 on 05/14/2024 at [facility] Right: Shoulder [employer] 08/28/2028 [id number] / [id number] / Explanted Type Area Bullet Swaging Machine Adjuster Device Identifier Shelf Expiration Date Model / Serial / Lot [employer] Tornier Aequalis Perform 25mm Lateralize Augment Reverse Shoulder [id number] - [id number] - [id number] Implanted:Qty: 1 on 12/19/2023 by Bill Reyna MD at [facility] Explanted:Qty: 1 on 02/13/2024 by Bill Reyna MD at [facility] Right: Shoulder [employer] 06/12/2028 [id number] / [id number] / [employer] Post Press Fit Glenoid Threaded Long Aequalis Perform 15mm [id number] - [id number] - [id number] Implanted:Qty: 1 on 12/19/2023 by Bill Reyna MD at [facility] Explanted:Qty: 1 on 02/13/2024 by Bill Reyna MD at [facility] Right: Shoulder [employer] 01/27/2028 [id number] / [id number] / [employer] Tornier Aequalis Perform 36mm Reverse Shoulder Standard Sphere [id number] - [id number] - [id number] Implanted:Qty: 1 on 12/19/2023 by Bill Reyna MD at [facility] Explanted:Qty: 1 on 02/13/2024 by Bill Reyna MD at [facility] Right: Shoulder [employer] 08/27/2028 [id number] / [id number] / [employer] Aequalis Perform Reversed 5mm 42mm Peripheral Glenoid Screw [id number] - [id number] Implanted:Qty: 1 on 12/19/2023 by Bill Reyna MD at [facility] Explanted:Qty: 1 on 02/13/2024 by Bill Reyna MD at [facility] Right: Shoulder [employer] [id number] / / [employer] Aequalis Perform Reversed 5mm 30mm Peripheral Glenoid Screw [id number] - [id number] Implanted:Qty: 1 on 12/19/2023 by Bill Reyna MD at [facility] Explanted:Qty: 1 on 02/13/2024 by Bill Reyna MD at [facility] Right: Shoulder [employer] [id number] / / [employer] Insert Humeral Retention Reverse Size 3/4 +3 Perform 36mm Combination [id number] - [id number] - [id number] Implanted:Qty: 1 on 12/19/2023 by Bill Reyna MD at [facility] Explanted:Qty: 1 on 02/13/2024 by Bill Reyna MD at [facility] Right: Shoulder [employer] 09/01/2027 [id number] / [id number] / [employer] Stem Fracture Sz 14 L 130mm Humeral [id number] - [id number] - [id number] Implanted:Qty: 1 on 12/19/2023 by Bill Reyna MD at [facility] Explanted:Qty: 1 on 02/13/2024 by Bill Reyna MD at [facility] Right: Shoulder [employer] 05/11/2028 [id number] / [id number] / [employer] Tornier Aequalis Perform 36mm Reverse Shoulder Standard Sphere Zly754 - [id number] Implanted:Qty: 1 on 01/23/2024 at [facility] Explanted:Qty: 1 on 02/13/2024 by Bill Reyna MD at [facility] Right: Shoulder [employer] 05/24/2028 [id number] / [id number] / [employer] Insert Perform Ret [id number] - [id number] Implanted:Qty: 1 on 01/23/2024 at [facility] Explanted:Qty: 1 on 02/13/2024 at [facility] Right: Shoulder [employer] 11/13/2027 [id number] / [id number] / Procedures Procedure Name Priority Date/Time Associated Diagnosis Comments CBC WITH AUTO DIFFERENTIAL Routine 08/20/2024 10:20 AM CDT Adverse effect of drug, subsequent encounter XR SHOULDER RIGHT 2 OR MORE VIEWS Schedule Routine, Read Routine (OP Routine) 08/07/2024 10:53 AM CDT S/P orthopedic surgery, follow-up exam XR SHOULDER RIGHT 2 OR MORE VIEWS Schedule Routine, Read Routine (OP Routine) 06/26/2024 10:09 AM CDT S/P orthopedic surgery, follow-up exam CT CHEST ABDOMEN W CONTRAST Schedule CIPRIANO, Read CIPRIANO (Appt Today, Awaiting Results) 06/03/2024 9:51 AM CDT Primary adenocarcinoma of upper lobe of right lung (HCC) 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 (HCC) from Last 3 Months or Most Recently Relevant to Health Maintenance Results * (ABNORMAL) CBC with auto differential (08/20/2024 10:20 AM CDT) WBC 8.0 3.8 - 10.8 Thousand/u L [facility] RBC, POC 4.82 4.20 - 5.80 Million/uL [facility] Hgb 10.7(L) 13.2 - 17.1 g/dL [facility] Hct 36.4(L) 38.5 - 50.0 % [facility] MCV 75.5(L) 80.0 - 100.0 fL [facility] MCH 22.2(L) 27.0 - 33.0 pg [facility] MCHC 29.4(L) 32.0 - 36.0 g/dL [facility] Comment: For adults, a slight decrease in the calculated MCHC value (in the range of 30 to 32 g/dL) is most likely not clinically significant; however, it should be interpreted with caution in correlation with other red cell parameters and the patient's clinical condition. Rdw 17.4(H) 11.0 - 15.0 % [facility] Platelets 435(H) 140 - 400 Thousand/u L [facility] MPV 9.3 7.5 - 12.5 fL [facility] Neutrophils, abs 5,256 1,500 - 7,800 cells/uL [facility] Lymphocytes, abs 1,472 850 - 3,900 cells/uL [facility] Monocyte abs 768 200 - 950 cells/uL [facility] Eosinophils, abs 392 15 - 500 cells/uL [facility] Basophils, abs 112 0 - 200 cells/uL [facility] Neutrophils 65.7 % [facility] Lymphocyte pct 18.4 % [facility] Monocytes 9.6 % [facility] Eosinophils 4.9 % [facility] Basophils 1.4 % [facility] Blood 08/20/2024 10:2 0 AM CDT 08/20/2024 10:20 AM CDT Narrative [facility] - 08/21/2024 5:32 AM CDT FASTING:YES FASTING: YES us Lety Dominguez MD LAB BLOOD ORDERABLES Fin al Result [facility] [address] [id number] * XR Shoulder Right 2 or More Views (08/07/2024 10:53 AM CDT) Anatomical Region Laterality Modality Upper Extremities, Shoulder Right Comp uted Radiography 08/07/2024 11:5 8 AM CDT Impressions 08/07/2024 11:58 AM CDT Revision reverse [id number]-cyy-dctjfm right total shoulder arthroplasty in near-anatomic position. Electronically signed by: Tyler Ramos M.D. Narrative 08/07/2024 11:58 AM CDT EXAMINATION: XR SHOULDER RIGHT 2 OR MORE VIEWS HISTORY: Right shoulder pain FINDINGS: 4 views of the right shoulder were performed with comparison made to 06/26/2024. There is a revision reverse [id number]-dgr-[id number] right total shoulder arthroplasty in near-anatomic position. There is no periprosthetic lucency or periprosthetic fracture. 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 Osseous fragment along the axillary pouch appears unchanged. Procedure Note Tyler Ramos MD PhD - 08/07/2024 EXAMINATION: XR SHOULDER RIGHT 2 OR MORE VIEWS HISTORY: Right shoulder pain FINDINGS: 4 views of the right shoulder were performed with comparison made to 06/26/2024. There is a revision reverse jjyk-[id number]-[id number] right total shoulder arthroplasty in near-anatomic position. There is no periprosthetic lucency or periprosthetic fracture. 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 Osseous fragment along the axillary pouch appears unchanged. IMPRESSION: Revision reverse heot-yuo-uzecep right total shoulder arthroplasty in near-anatomic position. Electronically signed by: Tyler Ramos M.D. Bill Reyna MD IMG XR PROCEDURES Fin al Result * XR Shoulder Right 2 or More Views (06/26/2024 10:09 AM CDT) Anatomical Region Laterality Modality Upper Extremities, Shoulder Right Comp uted Radiography 06/26/2024 10:1 7 AM CDT Impressions 06/26/2024 10:17 AM CDT Unchanged revision right reverse total shoulder arthroplasty in expected position. Electronically signed by: Stefano Muñoz D.O. Narrative 06/26/2024 10:17 AM CDT EXAMINATION: XR SHOULDER RIGHT 2 OR MORE VIEWS HISTORY: right shoulder pain COMPARISON: Radiographs 05/27/2024 FINDINGS: Revision reverse total shoulder arthroplasty in expected position. Intact hardware without evidence of osteolysis or periprosthetic fracture. Moderate acromioclavicular osteoarthritis. Heterotopic ossification versus loose body in the axillary. Interval resolution of postoperative soft tissue gas. Procedure Note Stefano Muñoz, DO - 06/26/2024 EXAMINATION: XR SHOULDER RIGHT 2 OR MORE VIEWS HISTORY: right shoulder pain COMPARISON: Radiographs 05/27/2024 FINDINGS: Revision reverse total shoulder arthroplasty in expected position. Intact hardware without evidence of osteolysis or periprosthetic fracture. Moderate acromioclavicular osteoarthritis. Heterotopic ossification versus loose body in the axillary. Interval resolution of postoperative soft tissue gas. IMPRESSION: Unchanged revision right reverse total shoulder arthroplasty in expected position. Electronically signed by: Stefano Muñoz D.O. Bill Reyna MD IMG XR PROCEDURES Fin al Result * CT Chest Abdomen W Contrast (06/03/2024 9:51 AM CDT) Anatomical Region Laterality Modality Body N/A Computed Tomogra phy 06/03/2024 10:3 5 AM CDT Impressions 06/03/2024 10:50 AM CDT 1. Stable post-surgical changes of right upper lobectomy 2. Unchanged pulmonary nodules, stable since 2020 and favored benign. Dictated by: Brody Peoples MD The radiology attending physician has personally reviewed this study, and had reviewed and/or edited this written report and agrees with it. Electronically signed by: Dania Sy M.D. Narrative 06/03/2024 10:50 AM CDT EXAMINATION: Computed tomography of the chest and abdomen with intravenous contrast HISTORY: Adenocarcinoma of the right upper lobe TECHNIQUE: Transaxial computed tomographic images of the chest and abdomen were obtained with intravenous contrast according to the standard protocol after the uneventful administration of 69 mL Opti-Ray 350 intravenous contrast. COMPARISON: CT 02/06/2023 FINDINGS: Chest: Post surgical changes of right upper lobectomy. Unchanged severe emphysematous changes in both lungs. No consolidation, pleural effusion or pneumothorax. Unchanged 5 mm pulmonary nodule abutting the pleura in the right lower lobe (series 4 image 82) stable since 2020 and likely benign. Unchanged 4 mm left lower lobe pulmonary nodule (series 4 image 102) also stable since 2020 and likely benign. Similarly 5 mm left lower lobe pulmonary nodule (series 4 image 136) also unchanged. No new or enlarging pulmonary nodules. Granuloma in the right lung base. Unchanged biapical pleural parenchymal scarring. No supraclavicular, axillary or mediastinal lymphadenopathy. Unchanged thyroid nodule. Heart size normal. No pericardial effusion. Unchanged calcification adjacent to the anterior leaflet of the mitral valve. Interval partially imaged right shoulder arthroplasty. Unchanged chronic appearing bilateral rib deformities. Abdomen: Hypoattenuating lesions in the liver too small to characterize but unchanged. Portal veins are patent. The gallbladder, pancreas, spleen are normal. Nodular thickening of the adrenal glands are unchanged. Kidneys enhance symmetrically. No hydronephrosis. Unchanged scarring of the right renal cortex. The imaged bowel is normal in caliber. No suspicious osseous lesions. Procedure Note Dania Sy MD - 06/03/2024 EXAMINATION: Computed tomography of the chest and abdomen with intravenous contrast HISTORY: Adenocarcinoma of the right upper lobe TECHNIQUE: Transaxial computed tomographic images of the chest and abdomen were obtained with intravenous contrast according to the standard protocol after the uneventful administration of 69 mL Opti-Ray 350 intravenous contrast. COMPARISON: CT 02/06/2023 FINDINGS: Chest: Post surgical changes of right upper lobectomy. Unchanged severe emphysematous changes in both lungs. No consolidation, pleural effusion or pneumothorax. Unchanged 5 mm pulmonary nodule abutting the pleura in the right lower lobe (series 4 image 82) stable since 2020 and likely benign. Unchanged 4 mm left lower lobe pulmonary nodule (series 4 image 102) also stable since 2020 and likely benign. Similarly 5 mm left lower lobe pulmonary nodule (series 4 image 136) also unchanged. No new or enlarging pulmonary nodules. Granuloma in the right lung base. Unchanged biapical pleural parenchymal scarring. No supraclavicular, axillary or mediastinal lymphadenopathy. Unchanged thyroid nodule. Heart size normal. No pericardial effusion. Unchanged calcification adjacent to the anterior leaflet of the mitral valve. Interval partially imaged right shoulder arthroplasty. Unchanged chronic appearing bilateral rib deformities. Abdomen: Hypoattenuating lesions in the liver too small to characterize but unchanged. Portal veins are patent. The gallbladder, pancreas, spleen are normal. Nodular thickening of the adrenal glands are unchanged. Kidneys enhance symmetrically. No hydronephrosis. Unchanged scarring of the right renal cortex. The imaged bowel is normal in caliber. No suspicious osseous lesions. IMPRESSION: 1. Stable post-surgical changes of right upper lobectomy 2. Unchanged pulmonary nodules, stable since 2020 and favored benign. Dictated by: Brody Peoples MD The radiology attending physician has personally reviewed this study, and had reviewed and/or edited this written report and agrees with it. Electronically signed by: Dania Sy M.D. Chase Dowell MD IMG CT PROCEDURES Final R esult from Last 3 Months or Most Recently Relevant to Health Maintenance Insurance MEDICARE [facility] MEDICARE [email or web address] T SENIOR SUPPLEMENT MEDICARE [facility] Advance Directives For more information, please contact: [phone] Documents on File Type Date Recorded Patient Administrative Assistant Receptionist Expl anation ADVANCE DIRECTIVE 12/19/2023 9:33 AM [employer] Sales Executive-Medical * Full Code (Latest Code Status on File) Date Activated Date Inactivated Comments 05/14/2024 5:11 PM 05/15/2024 4:26 PM * Full Code Date Activated Date Inactivated Comments 02/13/2024 4:03 PM 02/15/2024 10:46 PM * Full Code Date Activated Date Inactivated Comments 01/23/2024 2:18 PM 01/29/2024 8:32 PM * Full Code Date Activated Date Inactivated Comments 01/22/2024 2:34 PM 01/23/2024 2:18 PM * Full Code Date Activated Date Inactivated Comments 12/19/2023 4:29 PM 12/20/2023 4:48 PM Care Teams Monitoring Manager Relationship Specialty Start Date End Date Megan Shelley DO [facility] [address] [address] PCP - General Family Medicine 12/05/23 Geovani Hernandez MD Surgeon Cardiothoracic Surgery 08/13/17 Chase Dowell MD Consulting Physician Medical Oncology 08/13/17 Daniel Pé[place] [address] [place] [address] # [address] [place] [address] Consulting Physician Radiation Oncology 08/14/17
--- OUTSIDE RECORDS SUMMARY | 2024-09-20 09:45 | XMS_ITS | Encounter Summary ---
Author Organization [facility] Address [address] [place] [address] Care Team Providers Care Correctional Lieutenant Name Role Phone Gregory Stevens MD Primary Care Provider [phone] Encounter Details Date Type Department Care Team (Late st Contact Info) Description 01/24/2022 Lab Requisition 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 Derm[facility] Lab Received: 01/24/2022 07:11 AM Pathologist: Deborah Fish MD Specimen: Skin, left upper eyelid 1:51 PM STONEMASON SUPERVISOR DERMATOPATHOLOGY LABORATORY Final Diagnosis Specimen A. 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 The specimen consists of a 8x8x7 mm, Bisected piece of skin. The margin is inked green. The specimen is bisected lengthwise and submitted in 1 cassette. Jar 0. 2 1:51 PM STONEMASON SUPERVISOR DERMATOPATHOLOGY LABORATORY Microscopic Description Specimen A. SKIN, left upper eyelid: Within the dermis there are aggregates of basaloid cells with a high nuclear to cytoplasmic ratio and peripheral palisading. 2 1:51 PM STONEMASON SUPERVISOR DERMATOPATHOLOGY LABORATORY Disclaimer An external and internal positive and negative controls are appropriate for the histochemical, immunohistochemical and immunofluorescence stain(s) in this case (if any), except where stated explicitly. The performance characteristics of the stain(s) cited in this report were developed and its performance characteristic determined by the Dermatopathology Laboratory at [facility], directed by Dr. Florecita Tomlinson. These tests need not be, and therefore are not, approved by the [place] Food and Drug Administration. The tests are used for clinical purposes. Billing Codes Specimen Charges Stain Charges 41940 1 2 1:51 PM STONEMASON SUPERVISOR DERMATOPATHOLOGY LABORATORY Embedded Images 2 1:[address] [facility] DERMATOPATHOLOGY LABORATORY Pathology/Cytolog y TISSUE SPECIMEN FROM SKIN / Unknown 01/23/2022 01/24/2022 7:[address] [facility] us Dagoberto Cisneros MD LAB - PATHOLOGY/CYTOLOGY [facility] Final Result DERMATOPATHOLOGY LABORATORY [facility] - Department of Dermatology [address], [address] [phone] documented in this encounter Visit Diagnoses Not on filedocumented in this encounter Care Teams Correctional Lieutenant Relationship Specialty Start Date End Date Gregory Stevens MD [address] [place] [address] PCP - General 12/21/08 documented as of this encounter
--- OUTSIDE RECORDS SUMMARY | 2024-09-20 09:45 | XMS_ITS | Encounter Summary ---
Author Organization [facility] Address [address] [place] [address] Phone Care Team Providers Care Presales Consultant Name Role Phone Geovani Hernandez MD Unavailable [phone] Chase Dowell MD Unavailable Daniel Pérez MD Unavailable [phone] Megan Shelley DO Primary Care Provider [phone] Encounter Details Date Type Department Care Team (Late st Contact Info) Description 09/01/2024 Results Follow-Up [facility] Allergy and Immunology [address] [place] [address] Lety Dominguez MD [address] [place] [address] CBC with auto differential Social History Tobacco Use Types Packs/Day Years [...] on file 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 Gender Identity Not on file Sexual Orientation Not on file documented as of this encounter Plan of Treatment Not on file documented as of this encounter Visit Diagnoses Not on filedocumented in this encounter Care Teams Presales Consultant Relationship Specialty Start Date End Date Megan Shelley DO [address] [facility] [address] [address] PCP - General Family Medicine 12/05/23 Geovani Hernandez MD Surgeon Cardiothoracic Surgery 08/13/17 Chase Dowell MD Consulting Physician Medical Oncology 08/13/17 Daniel Pérez MD [address] [facility] # [address] LL [address] [place] [address] Consulting Physician Radiation Oncology 08/14/17 documented as of this encounter
--- OUTSIDE RECORDS SUMMARY | 2024-09-20 09:45 | XMS_ITS ---
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 Past Treatment and Therapy Plans No past plan information found. Lifetime Dose Tracking * Chemical Lifetime Dose Automatic Entry Manual Entr y DLP 6,515 mGycm 6,515 mGycm 0 mGycm
--- OUTSIDE RECORDS SUMMARY | 2024-09-20 09:45 | XMS_ITS | Referral Summary ---
Author Organization [facility] Address [address] [place] [address] Care Team Providers Care Sales Driver Name Role Phone Geovani Hernandez MD Unavailable [phone] Chase Dowell MD Unavailable [phone] Daniel Pérez MD Unavailable Megan Shelley DO Primary Care Provider [phone] Encounters Date Type Department Care Team Description 09/19/2024 8:30 AM CDT Therapy [facility] Physical [facility] [place] [address] Allyssa Omer, PT Right shoulder pain, unspecified chronicity (Primary Dx) 09/17/2024 8:30 AM CDT Therapy [facility] [place] [address] Allyssa Omer, PT Right shoulder pain, unspecified chronicity (Primary Dx) 09/11/2024 1:00 PM CDT Therapy [facility] [place] [address] Allyssa Omer, PT Right shoulder pain, unspecified chronicity (Primary Dx) 09/09/2024 8:30 AM CDT Therapy [facility] [place] [address] Allyssa Omer, PT Right shoulder pain, unspecified chronicity (Primary Dx) 09/05/2024 8:30 AM CDT Therapy [facility] [place] [address] Kimberly Washington, PT Right shoulder pain, unspecified chronicity (Primary Dx); Infection of prosthetic joint, subsequent encounter; Failed total joint replacement, subsequent encounter; History of total shoulder replacement, right 09/01/2024 Results Follow-Up [facility] Allergy and Immunology [address] [place] [address] Lety Dominguez MD CBC with auto differential 08/28/2024 8:30 AM CDT Therapy [facility] [place] [address] Kimberly Washington, PT Right shoulder pain, unspecified chronicity (Primary Dx); Infection of prosthetic joint, subsequent encounter; Failed total joint replacement, subsequent encounter 08/26/2024 1:00 PM CDT Therapy [facility] [place] [address] Allyssa Omer, PT Right shoulder pain, unspecified chronicity (Primary Dx) 08/22/2024 1:45 PM CDT Therapy [facility] [place] [address] Allyssa Omer, PT Right shoulder pain, unspecified chronicity (Primary Dx) 08/20/2024 9:15 AM CDT Therapy [facility] [place] [address] Allyssa Omer, PT Right shoulder pain, unspecified chronicity (Primary Dx) 08/14/2024 1:00 PM CDT Therapy [facility] [place] [address] Allyssa Omer, PT Right shoulder pain, unspecified chronicity (Primary Dx) 08/08/2024 8:30 AM CDT Therapy [facility] [place] [address] Kimberly Washington, PT Right shoulder pain, unspecified chronicity (Primary Dx); Infection of prosthetic joint, subsequent encounter; Failed total joint replacement, subsequent encounter 08/07/2024 10:48 AM CDT - 08/07/2024 11:59 PM CDT Hospital Encounter [facility] [address] [place] [address] S/P orthopedic surgery, follow-up exam Discharge Disposition: Discharge to home or self care 08/07/2024 10:30 AM CDT Office Visit [facility] Orthopaedic Surgery [address] 1[address] [place] [address] Bill Reyna MD Right shoulder pain, unspecified chronicity (Primary Dx); S/P orthopedic surgery, follow-up exam; Failed total joint replacement, subsequent encounter; Infection of prosthetic joint, subsequent encounter 08/06/2024 Plan of Care Documentation [facility] [place] [address] 08/06/2024 8:30 AM CDT Therapy [facility] [place] [address] Kimberly Washington, PT Right shoulder pain, unspecified chronicity (Primary Dx); Infection of prosthetic joint, subsequent encounter; Failed total joint replacement, subsequent encounter 07/30/2024 8:30 AM CDT Therapy [facility] [place] [address] Kimberly Washington, PT Right shoulder pain, unspecified chronicity (Primary Dx); Infection of prosthetic joint, subsequent encounter; Failed total joint replacement, subsequent encounter 07/28/2024 2:45 PM CDT Therapy [facility] [place] [address] Allyssa Omer, PT Right shoulder pain, unspecified chronicity (Primary Dx) 07/25/2024 8:45 AM CDT Therapy [facility] Physical [place] [address] Allyssa Omer, PT Right shoulder pain, unspecified chronicity (Primary Dx) 07/23/2024 8:15 AM T Therapy [facility] [place] [address] Allyssa Omer, PT Right shoulder pain, unspecified chronicity (Primary Dx) 07/16/2024 7:[address] [facility] [place] [address] Kimberly Washington, PT Right shoulder pain, unspecified chronicity (Primary Dx); Infection of prosthetic joint, subsequent encounter; Failed total joint replacement, subsequent encounter; History of total shoulder replacement, right; Closed fracture of proximal end of right humerus with routine healing, unspecified fracture morphology, subsequent encounter 07/14/2024 2:00 PM T Therapy [facility] [place] [address] Kimberly Washington, PT Right shoulder pain, unspecified chronicity (Primary Dx); Infection of prosthetic joint, subsequent encounter; Failed total joint replacement, subsequent encounter; History of total shoulder replacement, right; Closed fracture of proximal end of right humerus with routine healing, unspecified fracture morphology, subsequent encounter 07/11/2024 11:30 AM T Therapy [facility] [place] [address] Kimberly Washington, PT Right shoulder pain, unspecified chronicity (Primary Dx); Infection of prosthetic joint, subsequent encounter; Failed total joint replacement, subsequent encounter 07/09/2024 1:00 PM T Therapy [facility] [place] [address] Kimberly Washington, PT Right shoulder pain, unspecified chronicity (Primary Dx); Infection of prosthetic joint, subsequent encounter; Failed total joint replacement, subsequent encounter; History of total shoulder replacement, right 07/03/2024 4:15 PM CDT Therapy [facility] Physical [place] [address] Allyssa Omer, PT Right shoulder pain, unspecified chronicity (Primary Dx) 07/01/2024 1:30 PM CDT Therapy [facility] Physical [place] [address] Allyssa Omer, PT Right shoulder pain, unspecified chronicity (Primary Dx) 06/27/2024 9:15 AM CDT Therapy [facility] [place] [address] Allyssa Omer, PT Right shoulder pain, unspecified chronicity (Primary Dx); Infection of prosthetic joint, subsequent encounter; Failed total joint replacement, subsequent encounter 06/26/2024 10:04 AM CDT - 06/26/2024 11:59 PM CDT Hospital Encounter [facility] at [facility] [address] [place] [address] S/P orthopedic surgery, follow-up exam Discharge Disposition: Discharge to home or self care 06/26/2024 10:10 AM CDT Office Visit [facility] Orthopaedic Surgery [address] 1[address] [place] [address] Bill Reyna MD Right shoulder pain, unspecified chronicity (Primary Dx); S/P orthopedic surgery, follow-up exam; Infection of prosthetic joint, subsequent encounter; Failed total joint replacement, subsequent encounter 06/25/2024 9:15 AM CDT Therapy [facility] Physical [place] [address] Kimberly Washington, PT Failed total joint replacement, subsequent encounter (Primary Dx); Infection of prosthetic joint, subsequent encounter; History of total shoulder replacement, right from Last 3 Months Allergies Active Allergy Reactions Criticality Noted Date Comments Amoxicillin-Pot Clavulanate Rash Medium 05/03/19 Drug rash with eosinophilia Bacitracin Rash Medium 04/23/2024 Contact dermatitis Cefepime Rash Medium 02/14/2024 Chlorhexidine Rash Medium 04/06/2024 Delayed hypersensitivity. Recommend alternative skin prep. Clindamycin Itching Low 03/14/2024 Ethyl Mavnqnii-Na-Kexxlm Methacrylate Rash Medium 04/23/2024 Contact dermatitis. 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 Gender Identity Not on file Sexual Orientation Not on file Last Filed Vital Signs Vital Sign Reading [...] 05/14/2024 10:51 AM CDT Plan of Treatment Not on file Medical Devices Implanted Type Area Supervisor Sawmill Device Identifier Shelf Expiration Date Model / Serial / Lot Cement Molds Implanted:Qty: 1 on 02/13/2024 at [facility] Other - see comments Right: Shoulder Gina INST FEE 0 / / Ptc Proximal Body Implanted:Qty: 1 on 05/14/2024 at [facility] Other - see comments Right: Shoulder [place] 08/30/2028 [id number] / [id number] / Molly Perform Humeral System Implanted:Qty: 1 on 05/14/2024 at [facility] Other - see comments Right: Shoulder [place] 11/11/2028 [id number] / [id number] / Molly Hrs Ptc Partially Coated Distal Stem Implanted:Qty: 1 on 05/14/2024 at [facility] Other - see comments Right: Shoulder [place] 08/05/2028 [id number] / [id number] / [employer] [place] R High Viscosity Cement 40gm Bone Green [id number] - [id number] Implanted:Qty: 1 on 02/13/2024 at [facility] Right: Shoulder [employer] 01/26/2028 [id number] / / [id number] [employer] [place] R High Viscosity Cement 40gm Bone Green [id number] - [id number] Implanted:Qty: 1 on 02/13/2024 at [facility] Right: Shoulder [employer] 01/26/2028 [id number] / / [id number] [employer] [place] R High Viscosity Cement 40gm Bone Green [id number] - [id number] Implanted:Qty: 1 on 02/13/2024 at [facility] Right: Shoulder [employer] 01/26/2028 [id number] / / [id number] [employer] Post Press Fit Glenoid Threaded Long Aequalis Perform 15mm [id number] - [id number] Implanted:Qty: 1 on 05/14/2024 at [facility] Right: Shoulder [employer] 05/04/2028 [id number] / [id number] / [employer] Baseplate Glenoid Reverse Aequalis Perform 25mm [id number] - [id number] Implanted:Qty: 1 on 05/14/2024 at [facility] Right: Shoulder [employer] 03/12/2029 [id number] / [id number] / [employer] Aequalis Perform Reversed 5mm 18mm Peripheral Glenoid Screw [id number] - [id number] Implanted:Qty: 2 on 05/14/2024 at [facility] Right: Shoulder [employer] [id number] / / [employer] Glenosphere Cannulated Standard Ti 39mm [id number] - [id number] Implanted:Qty: 1 on 05/14/2024 at [facility] Right: Shoulder [employer] 12/25/2027 [id number] / [id number] / [employer] Aequalis Perform Reversed 5mm 34mm Peripheral Glenoid Screw [id number] - [id number] Implanted:Qty: 2 on 05/14/2024 at [facility] Right: Shoulder [employer] [id number] / / [employer] Screw Baseplate Aequalis Flex Revive L0mm Shoulder [id number] - [id number] Implanted:Qty: 1 on 05/14/2024 at [facility] Right: Shoulder [employer] 09/11/2028 [id number] / [id number] / [employer] Aequalis Flex Revive Shoulder Cap Locking [id number] - [id number] Implanted:Qty: 1 on 05/14/2024 at [facility] Right: Shoulder [employer] 04/11/2028 [id number] / [id number] / [employer] Implant Shoulder Size 3 8mm Offset Tornier Hrs Sterile [id number] - [id number] Implanted:Qty: 1 on 05/14/2024 at [facility] Right: Shoulder [employer] 08/28/2028 [id number] / [id number] / Explanted Type Area Supervisor Sawmill Device Identifier Shelf Expiration Date Model / Serial / Lot [employer] Tornier Aequalis Perform 25mm Lateralize Augment Reverse Shoulder [id number] - [id number] - [id number] Implanted:Qty: 1 on 12/19/2023 by Bill Reyna MD at [facility] Explanted:Qty: 1 on 02/13/2024 by Bill Reyna MD at [facility] Right: Shoulder [employer] 06/12/2028 [id number] / [id number] / [employer] Post Press Fit Glenoid Threaded Long Aequalis Perform 15mm [id number] - [id number] - [id number] Implanted:Qty: 1 on 12/19/2023 by Bill Reyna MD at [facility] Explanted:Qty: 1 on 02/13/2024 by Bill Reyna MD at [facility] Right: Shoulder [employer] 01/27/2028 [id number] / [id number] / [employer] Tornier Aequalis Perform 36mm Reverse Shoulder Standard Sphere Tda301 - [id number] - [id number] Implanted:Qty: 1 on 12/19/2023 by Bill Reyna MD at [facility] Explanted:Qty: 1 on 02/13/2024 by Bill Reyna MD at [facility] Right: Shoulder [employer] 08/27/2028 [id number] / [id number] / [employer] Aequalis Perform Reversed 5mm 42mm Peripheral Glenoid Screw [id number] - [id number] Implanted:Qty: 1 on 12/19/2023 by Bill Reyna MD at [facility] Explanted:Qty: 1 on 02/13/2024 by Bill Reyna MD at [facility] Right: Shoulder [employer] [id number] / / [employer] Aequalis Perform Reversed 5mm 30mm Peripheral Glenoid Screw [id number] - [id number] Implanted:Qty: 1 on 12/19/2023 by Bill Reyna MD at [facility] Explanted:Qty: 1 on 02/13/2024 by Bill Reyna MD at [facility] Right: Shoulder [employer] [id number] / / [employer] Insert Humeral Retention Reverse Size 3/4 +3 Perform 36mm Combination [id number] - [id number] - [id number] Implanted:Qty: 1 on 12/19/2023 by Bill Reyna MD at [facility] Explanted:Qty: 1 on 02/13/2024 by Bill Reyna MD at [facility] Right: Shoulder [employer] 09/01/2027 [id number] / [id number] / [employer] Stem Fracture Sz 14 L 130mm Humeral [id number] - [id number] - [id number] Implanted:Qty: 1 on 12/19/2023 by Bill Reyna MD at [facility] Explanted:Qty: 1 on 02/13/2024 by Bill Reyna MD at [facility] Right: Shoulder [employer] 05/11/2028 [id number] / [id number] / [employer] Tornier Aequalis Perform 36mm Reverse Shoulder Standard Sphere [id number] - [id number] Implanted:Qty: 1 on 01/23/2024 at [facility] Explanted:Qty: 1 on 02/13/2024 by Bill Reyna MD at [facility] Right: Shoulder [employer] 05/24/2028 [id number] / [id number] / PhoneGuard Insert Perform Ret [id number] - [id number] Implanted:Qty: 1 on 01/23/2024 at [facility] Explanted:Qty: 1 on 02/13/2024 at [facility] Right: Shoulder [employer] 11/13/2027 [id number] / [id number] / Procedures Procedure Name Priority Date/Time Associated [...] 08/21/2024 5:32 AM CDT FASTING:YES FASTING: YES Lety Dominguez MD LAB BLOOD ORDERABLES Fin al Result DANIELA [facility] [address] [id number] * XR Shoulder Right 2 or More Views (08/07/2024 10:53 AM CDT) Anatomical Region Laterality Modality Upper Extremities, Shoulder Right Comp uted Radiography 08/07/2024 11:5 8 AM CDT Impressions 08/07/2024 11:58 AM CDT Revision reverse lsye-iiz-almtzx right total shoulder arthroplasty in near-anatomic position. Electronically signed by: Tyler Ramos M.D. Narrative 08/07/2024 11:58 AM CDT EXAMINATION: XR SHOULDER RIGHT 2 OR MORE VIEWS HISTORY: Right shoulder pain FINDINGS: 4 views of the right shoulder were performed with comparison made to 06/26/2024. There is a revision reverse hzto-qqj-nayboh right total shoulder arthroplasty in near-anatomic position. [...] to 06/26/2024. There is a revision reverse moyu-umt-zovsge right total shoulder arthroplasty in near-anatomic position. There is no periprosthetic lucency or periprosthetic fracture. 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 Osseous fragment along the axillary pouch appears unchanged. IMPRESSION: Revision reverse glbd-zhw-igxuhf right total shoulder arthroplasty in near-anatomic position. Electronically signed by: Tyler Ramos M.D. Bill Reyna MD G XR PROCEDURES Fin al Result * XR [...] by: Stefano Muñoz D.O. Bill Reyna MD [facility] [place] PROCED[facility] Fin al Result * CT [...] (series 4 image 102) also stable since 202 and likely benign. Similarly 5 mm left [...] Recently Relevant to Health Maintenance Insurance MEDICARE [facility] MEDICARE [email or web address] SENIOR SUPPLEMENT MEDICARE [employer] [facility] Advance Directives For more information, please contact: [phone] Documents on File Type Date Recorded Patient Advertising Traffic Manager Expl anation ADVANCE DIRECTIVE 12/19/2023 9:33 AM Robert r of Pathology Tech-Medical * Full Code (Latest Code Status on [...] 4:29 PM 12/20/2023 4:48 PM Care Teams Sales Driver Relationship Specialty Start Date End Date Megan Shelley DO [address] [place] [address] DR JACQUES [address] [place] [address] PCP - General Family Medicine 12/05/23 Geovani Hernandez MD Surgeon Cardiothoracic Surgery 08/13/17 Chase Dowell MD Consulting Physician Medical Oncology 08/13/17 Daniel Pérez MD [address] [facility] [address] [place] [address] Consulting Physician Radiation Oncology 08/14/17
--- OUTSIDE RECORDS SUMMARY | 2024-09-20 09:47 | XMS_ITS | Continuity of Care Document ---
Author Organization [facility] [place] [address] [place] [address] Phone Care Team Providers Care Narcotics And/Or Vice Detective Name Role Phone Jerry BECERRA, Milly Unavailable [...] Copied on Encounter Office/outpa tient Visit, Est [facility], [facility] [address], [place], [place], [address], tel:[phone] SEC Luis Eduardo BERMUDEZ Professional 6 month pressure check (chief complaint) Macular pseudohole of both eyesPresence of intraocular lensOther secondary cataract, bilateralPrim luz open-angle glaucoma, bilateral, mild stage 5 Jerry Atkins. [facility], [address], [place], [place], [address], [place]. tel:[phone] Justino Jessica MD.Referri Provider: Milly Edwards OD L, [facility] [address], [place], [address] . tel:[phone] [facility], [address], [place], [place], [address], tel:[phone] SEC Luis Eduardo BERMUDEZ Professional Complete Exam (chief complaint) Macular pseudohole of both eyesPresence of intraocular lensOther secondary cataract, bilateralPrim luz open-angle glaucoma, bilateral, mild stageVitreous degeneration, right eye 4 Jerry Atkins. [facility], [address], [place], [place], [address], [place]. tel:[phone] Justino Jessica MD.Referri ng Provider: Justino Jessica MD P, [address] [place] [address], [address] . tel:[phone] Office/outpa tient Visit, Est [facility], [address] [place] [address] [address], [place], [place], [address], [place] tel:[phone] SEC Luis Eduardo BERMUDEZ Professional Glaucoma evaluation (chief complaint) Macular hole, bilateralGlau comatous optic atrophy, bilateralPres ence of intraocular lens Dec-2 2- 2 Eulalio Adler. [address] [facility], [place] A, [place], [place], [address], [place]. tel:[phone] Justino Jessica MD.Referri ng Provider: Justino Jessica MD P, [address] [place] [address], [address] . tel:[phone] [facility], [address] [place] [address] [address], [place], [place], [address], [place] tel:[phone] SEC Luis Eduardo BERMUDEZ Professional 1 mo CE PO (01/04/22) (chief complaint) Post op visit 2 Jerry OD Milly. [address] [place] [address], [address], [place], [place], [address], [place]. tel:[phone] Justino Jessica MD.Special ist: Austen Quezada OD, [facility] [address] [facility], [place], [address]. tel:[phone] erring Provider: Justino Jessica MD P, [address] [place] [address], [address] . tel:[phone] [facility], [address] [place] [address] [address], [place], [place], [address], [place] tel:[phone] SEC Luis Eduardo BERMUDEZ Professional 1 week s/p PCIOL (chief complaint) Post op visit 2 Jerry OD Milly. [address] [place], [place] [address]st [employer] [facility], [address], [place], [place], [address], [place]. tel:[phone] Justino Jessica MD.Referri ng Provider: Justino Jessica MD P, [address] [place] [address], [address] . tel:[phone] [facility], [address], [place], [place], [address], tel:[phone] SEC Luis Eduardo [place] Professional post op (chief complaint) Post op visit Nov- 0 2 Jerry OD Milly. [address] [place] [address] [employer] [facility], [address], [place], [place], [address], [place]. tel:[phone] Justino Jessica MD.Referri ng Provider: Justino Jessica MD P, [address] [place] [address], [address] . tel:[phone] [facility], [address] [place] [address] [address], [place], [place], [address], [place] tel:[phone] [facility] No Information 2 Eulalio Adler. [address] [facility], [facility] A, [place], [place], [address], [place]. tel:[phone] Referring Provider: Justino Jessica MD P, [address] [place] [address], [address] . tel:[phone] [facility], [address] [place] [address] [address], [place], [place], [address], [place] tel:[phone] SEC [place] Professional No Information 2 Eulalio Adler. [address] [facility], [facility], [place], [place], [address], [place]. tel:[phone] Referring Provider: Justino Jessica MD P, [address] [place] [address], [address] . tel:[phone] [facility], [address] [place] [address] [address], [place], [place], [address], [place] tel:[phone] SEC [place] Professional 2 week s/p PCIOL OD + 90 day (chief complaint) Post op visitEpiderma l inclusion cyst of left eyelidAge-rel ated nuclear cataract, left eye Sep-2 2 Eulalio Adler. [address] [employer], [address] [place], [address], [place]. tel:[phone] Justino Jessica MD.Referri ng Provider: Justino Jessica MD P, [address] [place] [address], [address] . tel:[phone] [facility], [address], [place], [place], [address], [place] tel:[phone] SEC Luis Eduardo [place] Professional post op (chief complaint) Post op visit Sep-0 2 Jerry OD Milly. [address] [place] [address] Drive, [address], [place], [place], [address], [place]. tel:[phone] Justino Jessica MD.Referri ng Provider: Justino Jessica MD P, [address] [place] [address], [address] . tel:[phone] [facility], [address], [place], [place], [address], [place] tel:[phone] [facility] No Information 2 Eulalio Adler. [address] [employer], [address], [place], [place], [address], [place]. tel:[phone] Referring Provider: Justino Jessica MD P, [address] [place] [address], [address] . tel:[phone] [facility], [address], [place], [place], [address], [place] tel:[phone] SEC [place] Professional No Information 2 Eulalio Adler. [address] [employer], [address], [place], [place], [address], . tel:[phone] Referring Provider: Justino Jessica MD P, [address] [place] [address], [address] . tel:[phone] Office/outpa tient Visit, [facility], [address], [place], [place], [address], tel:[phone] SEC Luis Eduardo BERMUDEZ Professional Cataract evaluation (chief complaint) Age-related nuclear cataract, bilateralOcul ar hypertension of right eyeMacular hole, bilateral Sep- 2 Eulalio Adler. [address] [facility], [place], [place], [address], . tel:[phone] Justino Jessica MD.Referri ng Provider: Justino Jessica MD P, [address] [place] [address], [address] . tel:[phone] [facility], [address], [place], [place], [address], [place] tel:[phone] SEC Renee Amor No Information 2 Eulalio Adler. [address] [facility], [facility] [address], [place], [place], [address], . tel:[phone] Specialist : Justino Jessica MD, [address] [place] [address], [address] . tel:[phone] Family History Family Member Type Diagnosis Age At Onset Mother Problem (finding) Thyroid Disease Problem Family history of Diabetes m gustavo Mother Problem (finding) Stroke Mother Problem (finding) Diabetes Type II Problem Family history of Macular de generation Payers Payer name Insurance type Covered republican ID Authoriza tion(s) [place] [id number] [facility] [id number] Social History Type Description Quantity Date Captured [...]
[2024-09-20 09:50] VITALS: BP 136/82; PULSE 85; RESP 20; TEMP 36.8; O2SAT 100
--- NOTE | 2024-09-20 10:06 | ED_ITS ---
HPI - Skin/Abscess/Foreign Bdy General Chief complaint: Skin/Abscess/Foreign Body Stated complaint: rash on scrotum patient presents to Express Care with complaints painful rash to scrotum that began about 1 week ago. Patient reports he has had these in the past and has been using topical Lotrimin and nystatin medication and this is not helped with symptoms in the past he has needed to be put on cephalexin which clears up the rash. Patient does report he has been significantly sweaty but denies any other new products lotions or anything else area. Denies fever, chills, aches, drainage from the area, testicular swelling, urinary symptoms. Related Data Allergies Allergy/AdvReac Type Severity Reaction Status Date / Time bacitracin (From Neosporin Allergy Unknown Blister Verified 09/20/24 10:04 ([id number])) chlorhexidine Allergy Unknown Unknown Verified 09/20/24 10:04 clindamycin Allergy Unknown Unknown Verified 09/20/24 10:04 neomycin (From Neosporin Allergy Unknown Blister Verified 09/20/24 10:04 ([id number])) polymyxin B (Polysporin) Allergy Unknown Blister Verified 09/20/24 10:04 Review of Systems Constitutional: Constitutional: Reports as per HPI, Denies chills, Denies fatigue, Denies fever(s) and Denies weakness Eyes: Eyes: Reports no additional eye complaints ENT: Reports system reviewed and no additional complaints, except as documented Cardiovascular: Cardiovascular: Reports no additional cardiovascular complaints Respiratory: Respiratory: Reports no additional respiratory complaints Gastrointestinal: Gastrointestinal: Reports no additional gastrointestinal complaints Genitourinary: Genitourinary: Reports no additional male genitourinary complaints Musculoskeletal: Musculoskeletal: Reports no additional musculoskeletal complaints Integumentary/Breasts: Skin/Breast: Reports as per HPI, Reports pruritus, Reports erythema and Reports rash Neurologic: Reports as per HPI, Denies numbness and Denies weakness Psychiatric: Psychiatric: Reports no additional psychiatric complaints Endocrine: Endocrine: Reports no additional endocrine complaints Hematologic/Lymphatic: Hematologic/Lymphatic: Reports no additional hematologic/lymphatic complaints Allergic/Immunologic: Allergic/Immunologic: Reports no additional allergic/immunologic complaints PMFSH Past Medical History Medical History Arthritis of right shoulder region COPD (chronic obstructive pulmonary disease) Dermatitis History of lung cancer Macular degeneration, left eye Macular degeneration, right eye Osteoarthritis of shoulders, bilateral Rotator cuff tendonitis Surgical History Surgical History S/P removal of lung Family History Family History Other Acute myocardial infarction Family history of cardiovascular disease Social History Social History Smoking status: Former smoker Second hand tobacco smoke exposure: No Smoking end date: 02/26/17 Alcohol intake: current Drinks per week: 12 Substance use: never Substance use type: does not use Lack of Transportation: No Lack of Food: Never True Current Housing: I Have Housing Concerned About Future Housing: No Difficulty Paying Gas/Electric Bills: No Difficulty Paying for Meds: No Currently Unemployed: No Education: Bachelor's Degree Difficulty w/ Childcare or Family Care: No Living arrangements: with family Occupation/Education: retired Gender identity (if verbalized by the patient): Male Spiritual care concerns: No Agree to blood products: Yes Exam Const: General: healthy appearing and no acute distress Nutritional Appearance: well nourished Orientation/consciousness: patient oriented x3 Limitations: no limitations Resp: Effort & Inspection: normal respiratory effort Auscultation: clear to auscultation bilaterally Cardio: Rate: regular rate Rhythm: regular rhythm Back/Spine/Pelvis: Back: no CVA tenderness Skin: General skin exam: normal color Wounds: no wounds Other: Diffuse erythema with minimal swelling to under side of scrotum. No active drainage or crusting. Neuro: General: patient oriented x3 Speech: normal speech Gait exam (Neuro): Normal gait present Extrem: General: normal to inspection, no clubbing, cyanosis or edema and no pedal edema Psych: Mental Status: mental status grossly normal Affect: normal affect Attitude: cooperative Course Course Level of Care: Express Care Visit Vital Signs Vital signs: Vital Signs Temperature 98.2 F 09/20/24 09:50 Pulse Rate 85 09/20/24 09:50 Respiratory Rate 20 09/20/24 09:50 Blood Pressure 136/82 09/20/24 09:50 Pulse Oximetry 100 09/20/24 09:50 Oxygen Delivery Room Air 09/20/24 09:50 Temperature 98.2 F 09/20/24 09:50 Pulse Rate 85 09/20/24 09:50 Respiratory Rate 20 09/20/24 09:50 Blood Pressure 136/82 09/20/24 09:50 Pulse Oximetry 100 09/20/24 09:50 Oxygen Delivery Room Air 09/20/24 09:50 MDM - Skin/Abscess/Foreign Bdy MDM Narrative Medical decision making narrative: Discharge instructions reviewed with patient, as well as provided in writing per nursing staff. The instructions also include specific and strict return/GO TO THE ER as well as f/u information. All questions have been answered, and the patient deny any further questions with discharge and discharge plan. Differential Diagnosis Differential diagnosis: Likely abscess of skin or subcutaneous tissue, dermatophytosis, allergic reaction to drug, cellulitis, impetigo and contact dermatitis Medical Records Attestation: I reviewed the patient's medical records. Discharge Plan Discharge Clinical Impression: Cellulitis, Fungal infection of skin Patient Disposition: Home Condition: Stable Instructions: Antibiotic Form, Antifungals (On the skin), Cellulitis (ED) Additional Instructions: Continue using the antifungal topical medications to the area. Take the antibiotics until gone. If symptoms not improve follow-up primary care as scheduled. Patient Language: Congolese Prescriptions: New cephalexin 500 mg capsule 500 mg PO Q12H Qty: 14 0RF prednisone 50 mg tablet 50 mg PO DAILY Qty: 5 0RF Follow-up/Referrals: Megan Shelley DO [Primary Care Provider] - Time of Disposition: 10:13
== END 2024-09-20 10:16 | disposition home or self-care (01) ==
PROVIDERS: Emergency Provider Nurse Practitioner Family; PCP Family Medicine
DX: N49.2 Inflammatory disorders of scrotum (principal); Z87.891 Personal history of nicotine dependence; J44.9 Chronic obstructive pulmonary disease, unspecified; H35.30 Unspecified macular degeneration; M19.012 Primary osteoarthritis, left shoulder; Z85.118 Personal history of other malignant neoplasm of bronchus and lung; Z90.2 Acquired absence of lung [part of]
CPT/HCPCS: 99213; G0463